=== PATIENT | female | born 1940 | race Hispanic/Latino ===

== ENCOUNTER 2018-01-06 08:39 | Day surgery (SDC) | payer OTHER ==
[2017-12-25 16:04] VITALS: BMI 27.4
[2018-01-06] MEDS ORDERED: Iodixanol 320 MG/ML 200 ML BOTTLE IV ONE ×2 (10:08→11:11)
[2018-01-06] MEDS ORDERED: Lidocaine Hydrochloride 5 ML INJ ONE ×2 (10:17→10:18)
[2018-01-06] MEDS ORDERED: Midazolam 2 MG/2 ML VIAL ONE (10:24)
[2018-01-06] MEDS ORDERED: HYDROmorphone 0.5 mg/0.5 ml ISec IVP PRN (11:55)
[2018-01-06] MEDS ORDERED: Sodium Chloride 0.9% 1,000 ML IV SCH (12:00)
[2018-01-06] MEDS ORDERED: Dextrose 5%/0.45% NS 1,000 ML IV SCH (15:00)
--- NOTE | 2018-01-08 07:05 | VAS ---
DATE: 01/06/2018 INDICATIONS: The patient is a 77-year-old female, admitted to [facility] with bilateral lower extremity pain and gangrenous changes to the toes, underwent a CTA showing distal aortic bilateral common iliac occlusion. Therefore, she was brought for intervention of bilateral inflow disease. PROCEDURE PERFORMED: Distal abdominal aortogram with bilateral iliac runoff, selective iliofemoral angiogram with runoff, CHAMBER WORKER stenting of right common iliac artery with use of 7 x 57 mm Visi-Pro in the right common iliac artery, and subsequently PTCA stenting of right external iliac artery with a 6 x 17 mm Visi-Pro. PTCA stenting of the left common iliac artery with a 9 x 27 mm Visi-Pro. Final kissing balloon angioplasty with bilateral common iliac arteries, 8-Dutch left femoral arterial access, 7-Dutch right femoral venous access. Manual pressure for hemostasis. Angiographic findings: Right common iliac 100% occluded, left common iliac ostial 80% calcified lesion. Right external iliac 70% to 80% stenosis. Right lower extremity findings, profunda femoris patent. SFA 100% occluded reconstitution of flow, overflow noted below the knee. Left profunda femoris patent. SFA 100% occluded with collateral flow noted below the knee. Hemodynamics: Right common femoral on initial access had a 70 mm pressure. There was an 80 mm gradient from the aorta to the right common femoral artery which resolved after the trending of the right common iliac and external iliac. Left common femoral, it was a 40 mm pressure gradient, which is all after deployment of the stent in the common iliac artery. IMPRESSION: Successful angioplasty of bilateral common iliac and right external iliac with use of balloon glassware maker demonstrator with bare-metal stents. RECOMMENDATIONS: The patient is to undergo removal of the sheath. Be observed in [facility] for six hours and be transferred back to [place] around 6 p.m. If the patient needs to be considered for staged intervention of the SFAs, if her symptoms of pain does not resolve, continue the patient to do antibiotic therapy, aspirin, statin, beta-blockers, Plavix, DANK inhibitors. Thank you Dr. Lind, Dr. Bell and Dr. Brenner for letting me participate in the care of this patient. Zbigniew Puente MD cc: Dr. Valdovinos. Dr. Bell. Dr. Brenner
== END 2018-01-06 17:40 | disposition short-term general hospital (02) ==
LOC: C.CATHLAB 08:39
PROVIDERS: ATTEND Internal Medicine Interventional Cardiology
DX: M79.606 Pain in leg, unspecified (principal); I96 Gangrene, not elsewhere classified
CPT/HCPCS: 36200; 37221; 75625; 75716; 76937; 82948; C1725; C1766; C1769; C1876; C1887; C1894; J1644; J1885; J2250; J3010; J7030; J7042; Q9966

== ENCOUNTER 2018-02-24 07:22 | Inpatient (IN) | payer MEDICARE, OTHER ==
[2018-02-13 18:27] VITALS: BMI 25.0
[2018-02-24] MEDS ORDERED: Midazolam 2 MG/2 ML VIAL ONE (10:07)
[2018-02-24] MEDS ORDERED: Lidocaine 2% MPF (5 ml) Inj ONE (10:07)
[2018-02-24] MEDS ORDERED: Iodixanol 320 MG/ML 200 ML BOTTLE IV ONE (10:08)
[2018-02-24] MEDS ORDERED: Iodixanol 320 MG/ML 100 ML BOTTLE IV ONE (10:08)
[2018-02-24] MEDS ORDERED: Heparin25000 units/250ml 1/2NS 25,000 UNITS/250 ML BAG IV PRN ×2 (16:23→18:05)
[2018-02-24] MEDS ORDERED: Heparin25000 units/250ml 1/2NS 25,000 UNITS/250 ML BAG IV ONE (18:12)
[2018-02-24 18:13] LABS: INR 1.2; PROTHROMBIN TIME 13.6 SECONDS (9.7-12.2)
--- NOTE | 2018-02-24 21:32 | CP.PCM.CON ---
History of Present Illness - History of Present Illness History of Present Illness: Surgery: Dr. Trent CC: B/L LE gangrene/necrosis HPI: 77F w. pmh significant for COPD, DM, CAD, CHF, chronic anemia, and non- healing bilateral lower extremity wounds was transferred from [facility] for LE angio and cardiac cath. Pt is unreliable historian at time of exam and hx was gathered from review of medical records. Pt has extensive PAD and chronic wounds on her B/L LE. Per review of records, wounds have been worsening despite endovascular interventions and local wound care. ROS: unattainable 2/2 AMS PMH: see above PSH:appendectomy, Angioplasty w b/l illiac stents (01/07/18) Meds: MAR reviewed NKDA SocialHx: former tobacco use, no ETOH/drugs FH: non-contributory Review of Systems - Review of Systems Systems not reviewed;Unavailable: Altered Mental Status Past Patient History - Infectious Disease Hx of Infectious Diseases: None - Past Medical History & Family History Past Medical History?: Yes - Past Social History Smoking Status: Former Smoker - CARDIAC Hx Cardiac Disorders: Yes Hx Congestive Heart Failure: Yes Hx Hypercholesterolemia: Yes Hx Hypertension: Yes Hx Peripheral Edema: Yes - PULMONARY Hx Respiratory Disorders: Yes Hx Bronchitis: Yes Hx Chronic Obstructive Pulmonary Disease (COPD): Yes Hx Pneumonia: Yes - NEUROLOGICAL Hx Neurological Disorder: Yes Other/Comment: Paresthesias of both feet - HEENT Hx HEENT Problems: No - RENAL Hx Chronic Kidney Disease: No - ENDOCRINE/METABOLIC Hx Endocrine Disorders: Yes Hx Hyperthyroidism: Yes - HEMATOLOGICAL/ONCOLOGICAL Hx Blood Disorders: Yes Hx Anemia: Yes - INTEGUMENTARY Hx Dermatological Problems: Yes Hx Cellulitis: Yes - MUSCULOSKELETAL/RHEUMATOLOGICAL Hx Musculoskeletal Disorders: Yes Hx Falls: Yes - GASTROINTESTINAL Hx Gastrointestinal Disorders: No - GENITOURINARY/GYNECOLOGICAL Hx Genitourinary Disorders: No - PSYCHIATRIC Hx Psychophysiologic Disorder: Yes Hx Anxiety: Yes Hx Substance Use: No - SURGICAL HISTORY Hx Surgeries: Yes Hx Appendectomy: Yes Other/Comment: kidney stone removal - ANESTHESIA Hx Anesthesia: Yes Hx Anesthesia Reactions: No Hx Malignant Hyperthermia: No Has any member of the family had a problem w/ anesthesia?: No Meds Allergies/Adverse Reactions: Allergies Allergy/AdvReac Type Severity Reaction Status Date / Time No Known Allergies Allergy Verified 02/12/18 12:54 - Medications Medications: Current Medications Sodium Chloride (Sodium Chloride 0.9%) 1,000 mls @ 50 mls/hr IV .Q20H CELESTE Heparin Sodium/Sodium Chloride (Heparin 32631 Units/250ml 1/2 Normal Saline) 25 ,000 units in 250 mls @ 11.92 mls/hr IV .[id number] PRN; Protocol; 18 UNITS/KG/HR PRN Reason: ADJUST RATE PER PROTOCOL Pneumococcal Polyvalent Vaccine (Pneumovax 23 Vaccine) 0.5 ml IM .ONCE ONE Stop: 02/27/18 10:01 Physical Exam - Constitutional Appears: Non-toxic, No Acute Distress - Head Exam Head Exam: ATRAUMATIC, NORMOCEPHALIC - Eye Exam Eye Exam: EOMI - ENT Exam ENT Exam: Mucous Membranes Moist - Neck Exam Neck exam: Positive for: Full Rom - Respiratory Exam Respiratory Exam: NORMAL BREATHING PATTERN. absent: Accessory Muscle Use, Respiratory Distress - Cardiovascular Exam Cardiovascular Exam: Tachycardia - GI/Abdominal Exam GI & Abdominal Exam: Soft. absent: Tenderness - Extremities Exam Additional comments: RLE necrotic toes and extensive necrosis of posterior/medial calf with muscle involvement, foul smelling LLE necrosis of toes and dorsum of foot, small area of breakdown over medial calf ~2x2cm - Neurological Exam Neurological exam: Altered Results - Vital Signs Recent Vital Signs: Last Vital Signs Temp 97.2 F L 02/24/18 19:48 Pulse 90 02/24/18 19:48 Resp 20 02/24/18 19:48 BP 124/79 02/24/18 19:48 Pulse Ox 99 02/24/18 19:48 - Labs Labs: Laboratory Results - last 24 hr 02/24/18 17:48 PT 13.6 H INR 1.2 APTT 66 H Assessment & Plan - Assessment and Plan (Free Text) Assessment: 77F w. b/l LE gangrene 2/2 PVD -RLE will likely require amputation -LLE may benefit from bypass -U/S ordered to asses GSV -Type and screen ordered for possible cryoperserved vein -will need to discuss with family goals of care and expectations prior to surgical intervention -d/w attending Sheri PGY4
--- NOTE | 2018-02-25 00:58 | CP.PCM.PN ---
Subjective - Date & Time of Evaluation Date of Evaluation: 02/24/18 Time of Evaluation: 16:55 - Subjective Subjective: s/p angiogram showing completely occluded left SNUFF CONTAINER INSPECTOR Objective - Vital Signs/Intake and Output Vital Signs (last 24 hours): Temp Pulse Resp BP Pulse Ox 98.1 F 91 H 20 124/79 97 02/24/18 23:54 02/24/18 23:54 02/24/18 23:54 02/24/18 23:54 02/24/18 23:54 Intake and Output: 02/24/18 02/25/18 18:59 06:59 Intake Total 194 Balance 194 - Medications Medications: Current Medications Sodium Chloride (Sodium Chloride 0.9%) 1,000 mls @ 50 mls/hr IV .Q20H CELESTE Heparin Sodium/Sodium Chloride (Heparin 20879 Units/250ml 1/2 Normal Saline) 25 ,000 units in 250 mls @ 11.92 mls/hr IV .[id number] PRN; Protocol; 18 UNITS/KG/HR PRN Reason: ADJUST RATE PER PROTOCOL Pneumococcal Polyvalent Vaccine (Pneumovax 23 Vaccine) 0.5 ml IM .ONCE ONE Stop: 02/27/18 10:01 - Labs Labs: PT 13.6 SECONDS (9.7-12.2) H 02/24/18 17:48 INR 1.2 02/24/18 17:48 APTT 66 SECONDS (21-34) H 02/24/18 17:48 - Constitutional Appears: Well, In Acute Distress - Head Exam Head Exam: ATRAUMATIC, NORMAL INSPECTION, NORMOCEPHALIC - Eye Exam Eye Exam: EOMI, Normal appearance, PERRL Pupil Exam: NORMAL ACCOMODATION, PERRL - ENT Exam ENT Exam: Mucous Membranes Moist, Normal Exam - Neck Exam Neck Exam: Full ROM, Normal Inspection. absent: Lymphadenopathy - Respiratory Exam Respiratory Exam: Clear to Ausculation Bilateral, NORMAL BREATHING PATTERN - Cardiovascular Exam Cardiovascular Exam: REGULAR RHYTHM, RRR, +S1, +S2, Murmur - GI/Abdominal Exam GI & Abdominal Exam: Soft, Normal Bowel Sounds. absent: Tenderness - Extremities Exam Extremities Exam: Full ROM, Normal Capillary Refill, Normal Inspection. absent : Joint Swelling, Pedal Edema Additional comments: gangrenous toes - Back Exam Back Exam: NORMAL INSPECTION - Neurological Exam Neurological Exam: Alert, Awake, CN II-XII Intact, Normal Gait, Oriented x3 - Psychiatric Exam Psychiatric exam: Normal Affect, Normal Mood - Skin Skin Exam: Dry, Intact, Normal Color, Warm Assessment and Plan (1) PVD (peripheral vascular disease) Assessment & Plan: completely occluded left SNUFF CONTAINER INSPECTOR with collateral flow to left PFA plan for SNUFF CONTAINER INSPECTOR endarterectomy keep pt on DAPT statins BB acei Status: Acute (2) Abnormal nuclear stress test Assessment & Plan: pt had refused cardiac cath in the past will be high risk for prolonged vascular surgery would recommed to just have endarterectomy of SNUFF CONTAINER INSPECTOR Status: Acute (3) CHF exacerbation Status: Acute (4) Gangrenous toe Assessment & Plan: podiatry following pt in [place] vascular sx on board Status: Acute (5) 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
--- NOTE | 2018-02-25 02:04 | CP.PCM.PN ---
Subjective - Date & Time of Evaluation Date of Evaluation: 02/25/18 Time of Evaluation: 01:53 - Subjective Subjective: 77 f transferred form [facility] was there for last 2 months a/w gangrenous lower ext , s/p b/l iliac stents in December 2017, also has h/o + stress test, dm on OHA, dementia, hyperthyroid, renal insufficiency, anasarca, bed ridden with recent worsening of right lower ext, rest pain. Angiography done in hospital on 02/24 showed acute complete occlusion of superficial femoral artery, and vascular surg consulted for probable endarterctomy to for symptom relieve. Last day notes of different subspecialities, prior consults, investigations reviewed also information obtained from Dr. Puente. DM meds, and tapazole being held, along with tramadol. Heparin drip has been ordered by cardiology for PVD. Patient being evaluated by vascular surg. Plan Patient will need to be diuresed, currently being hydrated due recent iodinated contrast exposure Vascular surg eval, amputation may be needed any was due to gangernous le, but endarterctomy may help symptomatically, risk of wound non healing due to anasarca Hold OHA, tramadol, tapazole, plavix, Continue ASA, heparin Accucheck achs goals of care to be discussed with family Palliative care may be needed. Objective - Vital Signs/Intake and Output Vital Signs (last 24 hours): Temp Pulse Resp BP Pulse Ox 98.1 F 91 H 20 124/79 97 02/24/18 23:54 02/24/18 23:54 02/24/18 23:54 02/24/18 23:54 02/24/18 23:54 Intake and Output: 02/24/18 02/25/18 18:59 06:59 Intake Total 194 Balance 194 - Medications Medications: Current Medications Bisacodyl (Dulcolax) 10 mg OH DAILY PRN PRN Reason: Constipation Docusate Sodium (Colace) 100 mg PO DAILY CELESTE Famotidine (Pepcid) 20 mg PO DAILY CELESTE Sodium Chloride (Sodium Chloride 0.9%) 1,000 mls @ 50 mls/hr IV .Q20H CELESTE Heparin Sodium/Sodium Chloride (Heparin 41412 Units/250ml 1/2 Normal Saline) 25 ,000 units in 250 mls @ 11.92 mls/hr IV .[id number] PRN; Protocol; 18 UNITS/KG/HR PRN Reason: ADJUST RATE PER PROTOCOL Isosorbide Mononitrate (Imdur Er) 30 mg PO DAILY CELESTE Memantine (Namenda) 5 mg PO BID CELESTE Metoprolol Tartrate (Lopressor) 25 mg PO Q12 CELESTE Multivitamins (Hexavitamin) 1 tab PO DAILY CELESTE Oxycodone/Acetaminophen (Percocet 5/325 Mg Tab) 1 tab PO Q4 PRN PRN Reason: Pain, moderate (4-7) Stop: 02/28/18 01:48 Pneumococcal Polyvalent Vaccine (Pneumovax 23 Vaccine) 0.5 ml IM .ONCE ONE Stop: 02/27/18 10:01 - Labs Labs: PT 13.6 SECONDS (9.7-12.2) H 02/24/18 17:48 INR 1.2 02/24/18 17:48 APTT 66 SECONDS (21-34) H 02/24/18 17:48
[2018-02-25 02:05] LABS: BASO % 0.1 % (0.0-2.0); HEMOGLOBIN 8.3 g/dL (11.0-16.0); LYMPH # 0.5 K/uL (1.0-4.3); LYMPH % 4.2 % (20.0-40.0); MEAN CELL VOLUME 75.6 fL (81.0-99.0); MEAN CORPUSCULAR HEMOGLOBIN 23.4 pg (27.0-31.0); MEAN CORPUSCULAR HGB CONC 30.9 g/dL (33.0-37.0); MEAN PLATELET VOLUME 8.2 fL (7.2-11.7); MONO # 0.7 K/uL (0.0-0.8); MONO % 5.9 % (0.0-10.0); NEUT # 10.2 K/uL (1.8-7.0); NEUT % 89.8 % (50.0-75.0); NRBC % 0.3 % (0.0-2.0); PLATELET COUNT 251 K/uL (130-400); RBC 3.53 Mil/uL (3.80-5.20); RED CELL DISTRIBUTION WIDTH 22.6 % (11.5-14.5); WHITE BLOOD COUNT 11.3 K/uL (4.8-10.8)
[2018-02-25 02:33] LABS: ALB/GLOB RATIO 0.8 (1.0-2.1); ALBUMIN 2.3 g/dL (3.5-5.0); ALT/SGPT 30 U/L (9-52); AST/SGOT 15 U/L (14-36); BLOOD UREA NITROGEN 32 mg/dL (7-17); CALCIUM 8.6 mg/dl (8.6-10.4); GFR AFRICAN-AMERICAN > 60; GFR NON-AFRICAN AMERICAN > 60
[2018-02-25 03:12] LABS: ANISOCYTOSIS MODERATE; LYMPHOCYTE 4 % (20-40); MONOCYTE 6 % (0-10); NEUTROPHIL 90 % (50-75); OVALOCYTES SLIGHT; PLATELET ESTIMATE NORMAL (NORMAL); TOTAL CELLS COUNTED 100
[2018-02-25 03:13] LABS: HYPOCHROMIC SLIGHT; MICROCYTOSIS SLIGHT; POLYCHROMIC SLIGHT
--- NOTE | 2018-02-25 03:13 | CP.PCM.HP ---
<Pati Rouse - Last Filed: 02/25/18 03:43> History of Present Illness - History of Present Illness History of Present Illness: CC: Bilateral lower extremities wounds and pain HPI ( As per nursing and EMR) Patient is a 77 year old female with past medical history of COPD, DM, CAD, CHF , Chronic anemia and PVD with non-healing bilateral lower extremity wounds and noted for malodorous smell and increased pain by nursing room staff. Patient has been admitted for similar complain in the past and noted for PVD. Patient had an angioplasty with bilateral iliac stent placement on 01/07 by crimper assembler, Dr. Puente. Patient was brought back to the hospital ([facility]) for worsening bilateral LE gangrene. As per EMR documentation, patient did well after intervention in December and noted worsening of symptoms, which has made her bedbound for approximately a week. During the encounter, patient was very sleepy but did deny any discomfort at the moment. Patient was transferred from [facility] to [facility] for angiogram. PMH: COPD, DM, CAD, CHF, Chronic anemia and PVD PSH:appendectomy, Angioplasty w b/l illiac stents (01/07/18) FHx: Unknown Medications: As per EMR, Unable to obtain information from patient All: NKDA Socia lHx: Lives at a long term. Former tobacco use Present on Admission - Present on Admission Any Indicators Present on Admission: No Review of Systems - Review of Systems Review of Systems: Unable to obtain as patient was very sleepy Past Patient History - Infectious Disease Hx of Infectious Diseases: None - Past Medical History & Family History Past Medical History?: Yes - Past Social History Smoking Status: Former Smoker - CARDIAC Hx Cardiac Disorders: Yes Hx Congestive Heart Failure: Yes Hx Hypercholesterolemia: Yes Hx Hypertension: Yes Hx Peripheral Edema: Yes - PULMONARY Hx Respiratory Disorders: Yes Hx Bronchitis: Yes Hx Chronic Obstructive Pulmonary Disease (COPD): Yes Hx Pneumonia: Yes - NEUROLOGICAL Hx Neurological Disorder: Yes Other/Comment: Paresthesias of both feet - HEENT Hx HEENT Problems: No - RENAL Hx Chronic Kidney Disease: No - ENDOCRINE/METABOLIC Hx Endocrine Disorders: Yes Hx Hyperthyroidism: Yes - HEMATOLOGICAL/ONCOLOGICAL Hx Blood Disorders: Yes Hx Anemia: Yes - INTEGUMENTARY Hx Dermatological Problems: Yes Hx Cellulitis: Yes - MUSCULOSKELETAL/RHEUMATOLOGICAL Hx Musculoskeletal Disorders: Yes Hx Falls: Yes - GASTROINTESTINAL Hx Gastrointestinal Disorders: No - GENITOURINARY/GYNECOLOGICAL Hx Genitourinary Disorders: No - PSYCHIATRIC Hx Psychophysiologic Disorder: Yes Hx Anxiety: Yes Hx Substance Use: No - SURGICAL HISTORY Hx Surgeries: Yes Hx Appendectomy: Yes Other/Comment: kidney stone removal - ANESTHESIA Hx Anesthesia: Yes Hx Anesthesia Reactions: No Hx Malignant Hyperthermia: No Has any member of the family had a problem w/ anesthesia?: No Meds Allergies/Adverse Reactions: Allergies Allergy/AdvReac Type Severity Reaction Status Date / Time No Known Allergies Allergy Verified 02/12/18 12:54 Physical Exam - Constitutional Appears: No Acute Distress - Head Exam Head Exam: ATRAUMATIC - Eye Exam Eye Exam: EOMI - ENT Exam ENT Exam: Mucous Membranes Dry - Respiratory Exam Respiratory Exam: NORMAL BREATHING PATTERN. absent: Decreased Breath Sounds, Prolonged Expiratory Phase, Rales, Rhonchi, Wheezes, Respiratory Distress Additional comments: CTA anteriorly B/L - Cardiovascular Exam Cardiovascular Exam: REGULAR RHYTHM, +S1, +S2 - GI/Abdominal Exam GI & Abdominal Exam: Normal Bowel Sounds, Soft. absent: Distended, Firm, Guarding, Tenderness - Extremities Exam Extremities exam: Negative for: normal inspection Additional comments: Bilateral foot gangrene Unable to examine, as it was just dressed by surgical nurse practitioner prior to the encounter - Neurological Exam Neurological exam: Alert - Psychiatric Exam Psychiatric exam: Normal Affect - Skin Skin Exam: Pallor Results - Vital Signs Recent Vital Signs: Last Vital Signs Temp 98.1 F 02/24/18 23:54 Pulse 91 H 02/24/18 23:54 Resp 20 02/24/18 23:54 BP 124/79 02/24/18 23:54 Pulse Ox 97 02/24/18 23:54 - Labs Result Diagrams: 02/25/18 02:01 02/25/18 02:01 Labs: Laboratory Results - last 24 hr 02/24/18 02/24/18 02/24/18 17:48 21:40 23:00 WBC RBC Hgb Hct MCV MCH MCHC RDW Plt Count MPV Neut % (Auto) Lymph % (Auto) [place] % (Auto) Eos % (Auto) Baso % (Auto) Neut # (Auto) Lymph # (Auto) [place] # (Auto) Eos # (Auto) Baso # (Auto) PT 13.6 H INR 1.2 APTT 66 H Sodium Potassium Chloride Carbon Dioxide Anion Gap BUN Creatinine Est GFR ( Amer) Est GFR (Non-Af Amer) POC Glucose (mg/dL) 104 Random Glucose Calcium Phosphorus Magnesium Total Bilirubin AST ALT Alkaline Phosphatase Total Protein Albumin Globulin Albumin/Globulin Ratio Blood Type Cancelled Antibody Screen Cancelled 02/25/18 02/25/18 02/25/18 02:01 02:01 02:01 WBC 11.3 H RBC 3.53 L Hgb 8.3 L Hct 26.7 L MCV 75.6 L MCH 23.4 L MCHC 30.9 L RDW 22.6 H Plt Count 251 MPV 8.2 Neut % (Auto) 89.8 H Lymph % (Auto) 4.2 L [place] % (Auto) 5.9 Eos % (Auto) 0.0 Baso % (Auto) 0.1 Neut # (Auto) 10.2 H Lymph # (Auto) 0.5 L [place] # (Auto) 0.7 Eos # (Auto) 0.0 Baso # (Auto) 0.0 PT INR APTT 90 H D Sodium 139 Potassium 4.2 Chloride 111 H Carbon Dioxide 20 L Anion Gap 13 BUN 32 H Creatinine 0.9 Est GFR ( Amer) > 60 Est GFR (Non-Af Amer) > 60 POC Glucose (mg/dL) Random Glucose 92 Calcium 8.6 Phosphorus 2.9 Magnesium 1.8 Total Bilirubin 0.9 AST 15 ALT 30 Alkaline Phosphatase 118 Total Protein 5.3 L Albumin 2.3 L Globulin 3.0 Albumin/Globulin Ratio 0.8 L Blood Type Antibody Screen Assessment & Plan (1) Gangrene due to arterial insufficiency Assessment and Plan: Consultations: - Maitre D, Dr. Puente * s/p angiogram showing completely occluded left TEMPLER HEAD * Management as per recommendation - Vascular surgery on board * Management as per recommendation * Possible need for RLE amputation, possible LLE bypass and possible cryoperserved vein * Need for assessment for greater saphenous vein - Infectious disease, Dr. Powers Leg wound Culture (02/12/18): * Providencia Rettgeri and E.coli Medications: Heparin drip Percocet 1 tab PO Q4H PRN Imdur ER 30mg PO daily Cefepime 1gm IV daily Florastor 250mg PO BID Status: Chronic Priority: High (2) Dementia Assessment and Plan: Memantine 5mg PO BID Status: Acute (3) Constipation Assessment and Plan: Duclolax 10mg ND PRN Colace 100mg PO daily Status: Acute (4) Hypertension Assessment and Plan: Lopressor 25mg PO Q12 Status: Acute (5) History of diabetes mellitus Assessment and Plan: HgbA1C (02/14/18): 5.9 Accuchecks Status: Acute (6) History of anemia Assessment and Plan: H/H stable 8.8/26.7 Will continue to monitor with labs and reassess the need for transfusion Status: Acute (7) ARNIE (acute kidney injury) Assessment and Plan: Resolving NS @ 100mls/cc Status: Acute (8) Prophylactic measure Assessment and Plan: GI: Pepcid 20mg PO daily DVT: Heparin Drip Status: Acute <Jaquan Mcelroy P - Last Filed: 02/27/18 07:58> Results - Vital Signs Recent Vital Signs: Last Vital Signs Temp 97.4 F L 02/26/18 23:35 Pulse 75 02/27/18 01:00 Resp 20 02/26/18 23:35 BP 130/69 02/26/18 23:35 Pulse Ox 95 02/26/18 23:35 - Labs Result Diagrams: 02/26/18 07:48 02/26/18 07:48 Labs: Laboratory Results - last 24 hr 02/26/18 02/26/18 02/26/18 07:48 07:48 11:42 WBC 11.7 H RBC 3.46 L Hgb 8.1 L Hct 27.0 L MCV 78.1 L D MCH 23.5 L MCHC 30.1 L RDW 22.7 H Plt Count 214 MPV 8.3 Neut % (Auto) 89.2 H Lymph % (Auto) 4.2 L [place] % (Auto) 6.5 Eos % (Auto) 0.0 Baso % (Auto) 0.1 Neut # (Auto) 10.5 H Lymph # (Auto) 0.5 L [place] # (Auto) 0.8 Eos # (Auto) 0.0 Baso # (Auto) 0.0 Neutrophils % (Manual) 91 H Lymphocytes % (Manual) 3 L Monocytes % (Manual) 5 Myelocytes % 1 H Platelet Estimate Normal Polychromasia Slight Hypochromasia (manual) Moderate Anisocytosis (manual) Moderate Microcytosis (manual) Slight Ovalocytes Slight Sodium 140 Potassium 4.3 Chloride 111 H Carbon Dioxide 14 L Anion Gap 19 BUN 33 H Creatinine 0.8 Est GFR ( Amer) > 60 Est GFR (Non-Af Amer) > 60 POC Glucose (mg/dL) 89 Random Glucose 96 Calcium 8.2 L Phosphorus 3.2 Magnesium 1.7 Total Bilirubin 1.0 AST 18 ALT 27 Alkaline Phosphatase 101 Total Protein 5.4 L Albumin 2.5 L Globulin 2.9 Albumin/Globulin Ratio 0.9 L 02/26/18 02/26/18 16:19 21:28 WBC RBC Hgb Hct MCV MCH MCHC RDW Plt Count MPV Neut % (Auto) Lymph % (Auto) [place] % (Auto) Eos % (Auto) Baso % (Auto) Neut # (Auto) Lymph # (Auto) [place] # (Auto) Eos # (Auto) Baso # (Auto) Neutrophils % (Manual) Lymphocytes % (Manual) Monocytes % (Manual) Myelocytes % Platelet Estimate Polychromasia Hypochromasia (manual) Anisocytosis (manual) Microcytosis (manual) Ovalocytes Sodium Potassium Chloride Carbon Dioxide Anion Gap BUN Creatinine Est GFR ( Amer) Est GFR (Non-Af Amer) POC Glucose (mg/dL) 115 H 114 H Random Glucose Calcium Phosphorus Magnesium Total Bilirubin AST ALT Alkaline Phosphatase Total Protein Albumin Globulin Albumin/Globulin Ratio Attending/Attestation - Attestation I have personally seen and examined this patient.: Yes I have fully participated in the care of the patient.: Yes I have reviewed all pertinent clinical information: Yes Notes (Text): See note on the same day
[2018-02-25] MEDS: Cefepime IV 1 gm in Dextrose 1 GM/50 ML BAG IVPB SCH (04:53)
--- NOTE | 2018-02-25 06:55 | VAS ---
Copied To: Zbigniew Puente MD Attending MD: Zbigniew Puente MD DATE: 02/24/2018 INDICATIONS: Critical limb ischemia, gangrenous toes. PROCEDURE PERFORMED: Distal abdominal aortogram with bilateral iliac runoff, selective bilateral iliofemoral angiogram with runoff, a 6-Zimbabwean right femoral arterial access. TECHNIQUES OF PROCEDURE: After obtaining informed consent, the patient was brought to the cardiac cath suite in post-absorptive and non-sedated state. The patient was prepped and draped in the usual sterile fashion, 2% lidocaine was used for infiltration of anesthesia. Using modified Seldinger technique, a 6-Zimbabwean sheath was introduced into the right femoral artery. A right iliofemoral angiogram with runoff was performed. Digital subtraction angiographic views of [id number] and right foot profile was obtained. Angiographic findings of the right lower extremity, right common iliac, external iliac patent, common iliac artery stent is widely patent. Profunda has a high-grade stenosis. SFA 100% occluded. Collateral flow, distal reconstitution with three-vessel runoff below the knee. Abdominal aorta, bilateral common iliac artery stents widely patent, left common iliac patent, external iliac patent, left profunda femoris is 100% occluded with collateral flow, SFA 100% occluded, profunda feeds the distal SFA outside the Manan's canal, reconstitution of flow with two-vessel runoff below the knee. IMPRESSION: Severe calcified profunda disease. RECOMMENDATIONS: The patient is to undergo vascular surgery evaluation for possible endarterectomy and patch repair. The patient at moderate risk and can proceed with the planned surgery. We will consult Dr. Trent. The patient is to be admitted to ICU and plan for revascularization. Zbigniew Puente MD
[2018-02-25] MEDS: Multiple Vitamins Tab PO SCH (10:04)
[2018-02-25] MEDS: Saccharomyces Boulardi 250 mg Cap PO SCH ×2 (10:04→18:16)
[2018-02-25] MEDS ORDERED: Heparin25000 units/250ml 1/2NS 25,000 UNITS/250 ML BAG IV PRN (10:15)
--- NOTE | 2018-02-25 12:34 | CP.PCM.PN ---
Objective - Vital Signs/Intake and Output Vital Signs (last 24 hours): Temp Pulse Resp BP Pulse Ox 97.6 F 91 H 18 130/77 100 02/25/18 07:00 02/25/18 07:55 02/25/18 07:00 02/25/18 10:04 02/25/18 07:00 Intake and Output: 02/25/18 02/25/18 06:59 18:59 Intake Total 194 400 Balance 194 400 - Medications Medications: Current Medications Bisacodyl (Dulcolax) 10 mg [place] DAILY PRN PRN Reason: Constipation Docusate Sodium (Colace) 100 mg PO DAILY [facility] Last Admin: 02/25/18 10:04 Dose: 100 mg Famotidine (Pepcid) 20 mg PO DAILY [facility] Last Admin: 02/25/18 10:04 Dose: 20 mg Sodium Chloride (Sodium Chloride 0.9%) 1,000 mls @ 50 mls/hr IV .Q20H [facility] Cefepime HCl (Maxipime Iv 1 Gm Premix) 1 gm in 50 mls @ 100 mls/hr IVPB Q24H [facility] PRN Reason: Protocol Last Admin: 02/25/18 04:53 Dose: 100 mls/hr Heparin Sodium/Sodium Chloride (Heparin 77725 Units/250ml 1/2 Normal Saline) 25 ,000 units in 250 mls @ 9.934 mls/hr IV .Q24H PRN; Protocol; 15 UNITS/KG/HR PRN Reason: ADJUST RATE PER PROTOCOL Last Admin: 02/25/18 10:19 Dose: 15 units/kg/hr, 9.934 mls/hr Isosorbide Mononitrate (Imdur Er) 30 mg PO DAILY [facility] Last Admin: 02/25/18 10:06 Dose: 30 mg Memantine (Namenda) 5 mg PO BID [facility] Last Admin: 02/25/18 10:04 Dose: 5 mg Metoprolol Tartrate (Lopressor) 25 mg PO Q12 [facility] Last Admin: 02/25/18 10:04 Dose: 25 mg Multivitamins (Hexavitamin) 1 tab PO DAILY [facility] Last Admin: 02/25/18 10:04 Dose: 1 tab Oxycodone/Acetaminophen (Percocet 5/325 Mg Tab) 1 tab PO Q4 PRN PRN Reason: Pain, moderate (4-7) Stop: 02/28/18 01:48 Pneumococcal Polyvalent Vaccine (Pneumovax 23 Vaccine) 0.5 ml IM .ONCE ONE Stop: 02/27/18 10:01 Saccharomyces Boulardii (Florastor) 250 mg PO BID [facility] Last Admin: 02/25/18 10:04 Dose: 250 mg - Labs Labs: 02/25/18 02:01 02/25/18 02:01 PT 13.6 SECONDS (9.7-12.2) H 02/24/18 17:48 INR 1.2 02/24/18 17:48 APTT 229 SECONDS (21-34) H* D 02/25/18 08:36 Assessment and Plan (1) PVD (peripheral vascular disease) Status: Acute (2) Abnormal nuclear stress test Status: Acute (3) CHF exacerbation Status: Acute (4) Gangrenous toe Status: Acute (5) 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
--- NOTE | 2018-02-25 12:42 | CP.PCM.PN ---
Subjective - Date & Time of Evaluation Date of Evaluation: 02/25/18 Time of Evaluation: 10:00 - Subjective Subjective: Zach Rico, PGY1 Cardiology Progress Note for Dr. Puente Patient was examined at bedside this morning. Patient was alert and orieted x2 ( person and place). She is a poor historian. Mental status is also poor, patient was unable to give a reliable review of systems. During interview, patient could only say "I don't feel good." Yesterday, patient had gone for angiogram of the aort/B/L Lower Extremity; she was found to have completely occluded Left LAST SAWYER with collateral flow to Left PFA. Patient is at moderate risk for vascular surgery and may proceed with the procedure. Patient is poor historian and was unable to verbalize whether or not she wanted to undergo a procedure. Otherwise, no changes overnight. Objective - Vital Signs/Intake and Output Vital Signs (last 24 hours): Temp Pulse Resp BP Pulse Ox 97.6 F 91 H 18 130/77 100 02/25/18 07:00 02/25/18 07:55 02/25/18 07:00 02/25/18 10:04 02/25/18 07:00 Intake and Output: 02/25/18 02/25/18 06:59 18:59 Intake Total 194 400 Balance 194 400 - Medications Medications: Current Medications Bisacodyl (Dulcolax) 10 mg [place] DAILY PRN PRN Reason: Constipation Docusate Sodium (Colace) 100 mg PO DAILY [facility] Last Admin: 02/25/18 10:04 Dose: 100 mg Famotidine (Pepcid) 20 mg PO DAILY [facility] Last Admin: 02/25/18 10:04 Dose: 20 mg Sodium Chloride (Sodium Chloride 0.9%) 1,000 mls @ 50 mls/hr IV .Q20H [facility] Cefepime HCl (Maxipime Iv 1 Gm Premix) 1 gm in 50 mls @ 100 mls/hr IVPB Q24H [facility] PRN Reason: Protocol Last Admin: 02/25/18 04:53 Dose: 100 mls/hr Heparin Sodium/Sodium Chloride (Heparin 43349 Units/250ml 1/2 Normal Saline) 25 ,000 units in 250 mls @ 9.934 mls/hr IV .Q24H PRN; Protocol; 15 UNITS/KG/HR PRN Reason: ADJUST RATE PER PROTOCOL Last Admin: 02/25/18 10:19 Dose: 15 units/kg/hr, 9.934 mls/hr Isosorbide Mononitrate (Imdur Er) 30 mg PO DAILY [facility] Last Admin: 02/25/18 10:06 Dose: 30 mg Memantine (Namenda) 5 mg PO BID [facility] Last Admin: 02/25/18 10:04 Dose: 5 mg Metoprolol Tartrate (Lopressor) 25 mg PO Q12 [facility] Last Admin: 02/25/18 10:04 Dose: 25 mg Multivitamins (Hexavitamin) 1 tab PO DAILY [facility] Last Admin: 02/25/18 10:04 Dose: 1 tab Oxycodone/Acetaminophen (Percocet 5/325 Mg Tab) 1 tab PO Q4 PRN PRN Reason: Pain, moderate (4-7) Stop: 02/28/18 01:48 Pneumococcal Polyvalent Vaccine (Pneumovax 23 Vaccine) 0.5 ml IM .ONCE ONE Stop: 02/27/18 10:01 Saccharomyces Boulardii (Florastor) 250 mg PO BID [facility] Last Admin: 02/25/18 10:04 Dose: 250 mg - Labs Labs: 02/25/18 02:01 02/25/18 02:01 PT 13.6 SECONDS (9.7-12.2) H 02/24/18 17:48 INR 1.2 02/24/18 17:48 APTT 229 SECONDS (21-34) H* D 02/25/18 08:36 - Constitutional Appears: Confused - Head Exam Head Exam: ATRAUMATIC, NORMAL INSPECTION, NORMOCEPHALIC - Eye Exam Eye Exam: Normal appearance, PERRL. absent: Periorbital swelling - ENT Exam ENT Exam: Mucous Membranes Moist, Normal Exam - Neck Exam Neck Exam: Full ROM, Normal Inspection. absent: Tenderness - Respiratory Exam Respiratory Exam: Clear to Ausculation Bilateral. absent: Accessory Muscle Use , Chest Wall Tenderness, Decreased Breath Sounds, Rales, Rhonchi, Wheezes - Cardiovascular Exam Cardiovascular Exam: RRR, +S1, +S2 - GI/Abdominal Exam GI & Abdominal Exam: Soft, Normal Bowel Sounds. absent: Distended, Guarding, Tenderness, Rebound - Extremities Exam Extremities Exam: Tenderness. absent: Calf Tenderness, Full ROM Additional comments: Gangrenous distal lower extremity. Dressing applied to bilateral lower extremities. Foul odor. - Neurological Exam Neurological Exam: Alert (AAOx2. Mental Status poor. Dementia. ). absent: Oriented x3 - Skin Skin Exam: Abrasion, Warm Assessment and Plan - Assessment and Plan (Free Text) Assessment: Patient is a 77 y/o F with PMHx of PVD (b/l iliac stent 01/07, Dr. Puente), CAD, CHF, COPD, DM, who [place] [facility] [facility] [place] worsening bilateral ulcers with gangrenous toes. Patient has poor mental status and has appeared lethargic during hospital course. Tib/Fib Xray showed multiple ulcers of LE without osteo. Patient requires vascular surgery: LAST SAWYER endartarectomy. Patient transferred to [facility] and evaluated by cardiology via angiogram of the lower extremity. Patient is at moderate risk and may proceed with vascular surgery. Plan: Lower Extremity Arterial Insufficiency with gangrene - Vascular surgery: plan for LAST SAWYER endarterectomy. Possible need for RLE amputation, possible LLE bypass. - Angiogram (02/24): complete occlusion of left LAST SAWYER with collateral flow to left PFA. Patient is moderate risk for procedure but may undergo vascular surgery. - Hx of PVD (b/l iliac stents on 01/07) - f/u ID recs Dementia - AAOx2 - Poor historian and baseline mental status - Has not properly verbalized consent for further vascular surgery - c/w memantine DM - Last Hgb A1c was 5.9 - c/w Accuchecks - Maintain euglycemia GI ppx: Pepcid DVT ppx: Heparin gtt Dispo: Patient is s/p angio and moderate risk for vascular surgery; may undergo surgery. Case was discussed and reviewed with Textile Worker, Dr. Puente. Please see any further recommendations as per Dr. Puente.
--- NOTE | 2018-02-25 15:11 | CP.PCM.PN ---
Addendum entered and electronically signed by Brittany Beaulieu DO 02/25/18 16:00 : The plan did not save in original note Plan: Gangrene due to arterial insufficiency Consultations: Counseling Case Manager: Dr. Puente Vascular Surgeon: Dr. Trent Infectious Disease: Dr. Powers Vascular recommends: Possible need for RLE amputation, possible LLE bypass and possible cryoperserved vein Cardiology: took patient for cardiac cath; awaiting full read Infectious disease: recommendations appreciated (02/12/18) leg wound culture positive for: Providencia Rettgeri and E.coli Medications: Heparin drip Percocet 1 tab PO Q4H PRN Imdur ER 30mg PO daily Cefepime 1gm IV daily Florastor 250mg PO BID Dementia Memantine 5mg PO BID Constipation Duclolax 10mg VT PRN Colace 100mg PO daily Hypertension Lopressor 25mg PO Q12 History of diabetes mellitus HgbA1C (02/14/18): 5.9 Accuchecks History of anemia H/H stable 8.8/26.7 Will continue to monitor with labs and reassess the need for transfusion ARNIE (acute kidney injury) Resolving NS @ 100mls/cc Prophylactic measure GI: Pepcid 20mg PO daily DVT: Heparin Drip Overall plan is to the recommendations from sugery/cardio team for stenting vs amputation. Original Note: <Brittany Beaulieu - Last Filed: 02/25/18 15:40> Subjective - Date & Time of Evaluation Date of Evaluation: 02/25/18 Time of Evaluation: 15:05 - Subjective Subjective: PGY-1 Medicine Progress Note for Dr. Gaytan's service Patient seen and examined at bedside. Patient is a poor historian. Patient ROS limited as patient only repeated "I want to go home". When asked if she had pain , she said "I do not want anything". Patient seems to have AMS likely secondary to baseline dementia. Patient does not have capacity to consent for any procedures. Patient needs advocate (preferably family members) to make a decision as her proxy. Objective - Vital Signs/Intake and Output Vital Signs (last 24 hours): Temp Pulse Resp BP Pulse Ox 97.6 F 91 H 18 130/77 100 02/25/18 07:00 02/25/18 07:55 02/25/18 07:00 02/25/18 10:04 02/25/18 07:00 Intake and Output: 02/25/18 02/25/18 06:59 18:59 Intake Total 194 859 Balance 194 859 - Medications Medications: Current Medications Bisacodyl (Dulcolax) 10 mg [place] DAILY PRN PRN Reason: Constipation Docusate Sodium (Colace) 100 mg PO DAILY [facility] Last Admin: 02/25/18 10:04 Dose: 100 mg Famotidine (Pepcid) 20 mg PO DAILY [facility] Last Admin: 02/25/18 10:04 Dose: 20 mg Sodium Chloride (Sodium Chloride 0.9%) 1,000 mls @ 50 mls/hr IV .Q20H [facility] Cefepime HCl (Maxipime Iv 1 Gm Premix) 1 gm in 50 mls @ 100 mls/hr IVPB Q24H [facility] PRN Reason: Protocol Last Admin: 02/25/18 04:53 Dose: 100 mls/hr Heparin Sodium/Sodium Chloride (Heparin 49042 Units/250ml 1/2 Normal Saline) 25 ,000 units in 250 mls @ 9.934 mls/hr IV .Q24H PRN; Protocol; 15 UNITS/KG/HR PRN Reason: ADJUST RATE PER PROTOCOL Last Admin: 02/25/18 10:19 Dose: 15 units/kg/hr, 9.934 mls/hr Isosorbide Mononitrate (Imdur Er) 30 mg PO DAILY [facility] Last Admin: 02/25/18 10:06 Dose: 30 mg Memantine (Namenda) 5 mg PO BID [facility] Last Admin: 02/25/18 10:04 Dose: 5 mg Metoprolol Tartrate (Lopressor) 25 mg PO Q12 [facility] Last Admin: 02/25/18 10:04 Dose: 25 mg Multivitamins (Hexavitamin) 1 tab PO DAILY [facility] Last Admin: 02/25/18 10:04 Dose: 1 tab Oxycodone/Acetaminophen (Percocet 5/325 Mg Tab) 1 tab PO Q4 PRN PRN Reason: Pain, moderate (4-7) Stop: 02/28/18 01:48 Pneumococcal Polyvalent Vaccine (Pneumovax 23 Vaccine) 0.5 ml IM .ONCE ONE Stop: 02/27/18 10:01 Saccharomyces Boulardii (Florastor) 250 mg PO BID [facility] Last Admin: 02/25/18 10:04 Dose: 250 mg - Labs Labs: 02/25/18 02:01 02/25/18 02:01 PT 13.6 SECONDS (9.7-12.2) H 02/24/18 17:48 INR 1.2 02/24/18 17:48 APTT 229 SECONDS (21-34) H* D 02/25/18 08:36 - Constitutional Appears: Non-toxic, Confused - Head Exam Head Exam: NORMAL INSPECTION, NORMOCEPHALIC - Eye Exam Eye Exam: EOMI. absent: Scleral icterus - ENT Exam ENT Exam: Mucous Membranes Dry - Respiratory Exam Respiratory Exam: Clear to Ausculation Bilateral, NORMAL BREATHING PATTERN. absent: Decreased Breath Sounds, Rales, Rhonchi, Wheezes, Respiratory Distress - Cardiovascular Exam Cardiovascular Exam: REGULAR RHYTHM, +S1, +S2. absent: Tachycardia, JVD - GI/Abdominal Exam GI & Abdominal Exam: Soft, Normal Bowel Sounds. absent: Distended, Firm, Guarding, Tenderness - Extremities Exam Extremities Exam: Tenderness. absent: Normal Inspection Additional comments: bilateral lower extremities gangrene with dressings on; gangrene toes bilaterally - Neurological Exam Neurological Exam: Awake. absent: Alert, Oriented x3 - Skin Skin Exam: Intact, Normal Color Assessment and Plan - Assessment and Plan (Free Text) Assessment: Pt is a 77 yo female with PMH of COPD, DM, CAD, CHF, Chronic anemia and PVD with non-healing bilateral lower extremity wounds; angioplasty was done on 01/07 with bilateral iliac stent placement; however patient returned to the hospital for worsening bilateral LE gangrene; patient had angiogram done today pending results <Cesar Blake H - Last Filed: 02/25/18 16:39> Objective - Vital Signs/Intake and Output Vital Signs (last 24 hours): Temp Pulse Resp BP Pulse Ox 98.1 F 74 20 114/68 99 02/25/18 15:00 02/25/18 15:00 02/25/18 15:00 02/25/18 15:00 02/25/18 15:00 Intake and Output: 02/25/18 02/25/18 06:59 18:59 Intake Total 194 859 Balance 194 859 - Medications Medications: Current Medications Bisacodyl (Dulcolax) 10 mg [place] DAILY PRN PRN Reason: Constipation Docusate Sodium (Colace) 100 mg PO DAILY [facility] Last Admin: 02/25/18 10:04 Dose: 100 mg Famotidine (Pepcid) 20 mg PO DAILY [facility] Last Admin: 02/25/18 10:04 Dose: 20 mg Sodium Chloride (Sodium Chloride 0.9%) 1,000 mls @ 50 mls/hr IV .Q20H [facility] Cefepime HCl (Maxipime Iv 1 Gm Premix) 1 gm in 50 mls @ 100 mls/hr IVPB Q24H [facility] PRN Reason: Protocol Last Admin: 02/25/18 04:53 Dose: 100 mls/hr Heparin Sodium/Sodium Chloride (Heparin 86892 Units/250ml 1/2 Normal Saline) 25 ,000 units in 250 mls @ 9.934 mls/hr IV .Q24H PRN; Protocol; 15 UNITS/KG/HR PRN Reason: ADJUST RATE PER PROTOCOL Last Admin: 02/25/18 10:19 Dose: 15 units/kg/hr, 9.934 mls/hr Isosorbide Mononitrate (Imdur Er) 30 mg PO DAILY [facility] Last Admin: 02/25/18 10:06 Dose: 30 mg Memantine (Namenda) 5 mg PO BID [facility] Last Admin: 02/25/18 10:04 Dose: 5 mg Metoprolol Tartrate (Lopressor) 25 mg PO Q12 [facility] Last Admin: 02/25/18 10:04 Dose: 25 mg Multivitamins (Hexavitamin) 1 tab PO DAILY [facility] Last Admin: 02/25/18 10:04 Dose: 1 tab Oxycodone/Acetaminophen (Percocet 5/325 Mg Tab) 1 tab PO Q4 PRN PRN Reason: Pain, moderate (4-7) Stop: 02/28/18 01:48 Pneumococcal Polyvalent Vaccine (Pneumovax 23 Vaccine) 0.5 ml IM .ONCE ONE Stop: 02/27/18 10:01 Saccharomyces Boulardii (Florastor) 250 mg PO BID [facility] Last Admin: 02/25/18 10:04 Dose: 250 mg - Labs Labs: 02/25/18 02:01 02/25/18 02:01 PT 13.6 SECONDS (9.7-12.2) H 02/24/18 17:48 INR 1.2 02/24/18 17:48 APTT 229 SECONDS (21-34) H* D 02/25/18 08:36 Attending/Attestation - Attestation I have personally seen and examined this patient.: Yes I have fully participated in the care of the patient.: Yes I have reviewed all pertinent clinical information, including history, physical exam and plan: Yes Notes (Text): 02/25/18 16:34 Medical attending: Patient was seen and examined by me. Agree with the above note by the resident The patient is from [facility] and was moved to [facility] overnight in hopes that further interventions could be done as she has severe PVD and there is noted gangrene on the lower extremities. Considering the extent of the gangrene concern she may require amputation. The patient is NOT able to make decisions on her own. She was verbal, awake, however at times not making sense and not following commands. Does not know place or time. I was later informed that the patient is going to be moved back to [facility]. Cesar Blake
--- NOTE | 2018-02-25 15:47 | CP.PCM.CON ---
History of Present Illness - History of Present Illness History of Present Illness: 77 yo F with history diabetes, chf, anemia was sent by [facility] for bilateral toe wounds/ulcers/gangrene for possible revasc pending angiogram Review of Systems - Review of Systems All systems: reviewed and no additional remarkable complaints except - Constitutional Constitutional: As Per HPI - EENT Eyes: absent: As Per HPI, Blind Spots, Blurred Vision, Change in Vision, Decreased Night Vision, Diplopia, Discharge, Dry Eye, Exophthalmos, Floaters, Irritation, Itchy Eyes, Loss of Peripheral Vision, Pain, Photophobia, Requires Corrective Lenses, Sees Flashes, Spots in Vision, Tunnel Vision, Other Visual Disturbances, Loss of Vision, Other Ears: absent: As Per HPI, Decreased Hearing, Ear Discharge, Ear Pain, Tinnitus, Abnormal Hearing, Disequilibrium, Dizziness, Other Nose/Mouth/Throat: absent: As Per HPI, Epistaxis, Nasal Congestion, Nasal Discharge, Nasal Obstruction, Nasal Trauma, Nose Pain, Post Nasal Drip, Sinus Pain, Sinus Pressure, Bleeding Gums, Change in Voice, Dental Pain, Dry Mouth, Dysphagia, Halitosis, Hoarsness, Lip Swelling, Mouth Lesions, Mouth Pain, Odynophagia, Sore Throat, Throat Swelling, Tongue Swelling, Facial Pain, Neck Pain, Neck Mass, Other - Cardiovascular Cardiovascular: absent: As Per HPI, Acrocyanosis, Chest Pain, Chest Pain at Rest , Chest Pain with Activity, Claudication, Diaphoresis, Dyspnea, Dyspnea on Exertion, Edema, Irregular Heart Rhythm, Pain Radiating to Arm/Neck/Jaw, Leg Edema, Leg Ulcers, Lightheadedness, Orthopnea, Palpitations, Paroxysmal Nocturnal Dyspnea, Pedal Edema, Radiating Pain, Rapid Heart Rate, Slow Heart Rate, Syncope, Other - Respiratory Respiratory: absent: As Per HPI, Cough, Dyspnea, Hemoptysis, Dyspnea on Exertion , Wheezing, Snoring, Stridor, Pain on Inspiration, Chest Congestion, Excessive Mucous Production, Change in Mucous Color, Pain with Coughing, Other - Gastrointestinal Gastrointestinal: absent: As Per HPI, Abdominal Pain, Belching, Bloating, Change in Bowel Habits, Change in Stool Character, Coffee Ground Emesis, Constipation, Cramping, Diarrhea, Dyspepsia, Dysphagia, Early Satiety, Excessive Flatus, Fecal Incontinence, Heartburn, Hematemesis, Hematochezia, Loose Stools, Melena, Nausea, Odynophagia, Temesmus, Vomiting, Other - Genitourinary Genitourinary: absent: As Per HPI, Change in Urinary Stream, Difficulty Urinating, Dysuria, Flank Pain, Hematuria, Pyuria, Nocturia, Urinary Incontinence, Urinary Frequency, Urinary Hesitance, Urinary Urgency, Voiding Freq/Small Amts, Freq UTI, Hx Renal/Bladder Calculi, Hx /Renal Surgery, Bladder Distension, Other - Reproductive: Female Reproductive:Female: absent: As Per HPI, Amenorrhea, Amenorrhea/ Control, Currently Menstual, Cycle <21 Days, Cycle >35 Days, Cycle Variable, Menses 1-7 Days, Menses >/= 8 Days, Menses Variable, Cycle > 4 Weeks Between, No Menses for 6 Months, Heavy Menses, Light Menses, Normal Menses, Spotting Between Cycles , S/P Hysterectomy, Menopausal, Post Menopausal, Premenarche, Abnormal Vaginal Bleeding, Dysmenorrhea, Dyspareunia, Genital Lesions, Genital Pruritis, Pelvic Pain, Prolapse Symptoms, Sexual Dysfunction, Vaginal Discharge, Vaginal Dryness , Vaginal Odor, Vaginal Pruritis, Other - Menstruation Menstruation: absent: As Per HPI, Amenorrhea, Amenorrhea/ Control, Currently Menstual, Cycle <21 Days, Cycle >35 Days, Cycle Variable, Menses 1-7 Days, Menses >/= 8 Days, Menses Variable, Cycle > 4 Weeks Between, No Menses for 6 Months, Heavy Menses, Light Menses, Normal Menses, Spotting Between Cycles , S/P Hysterectomy, Menopausal, Post Menopausal, Premenarche, Abnormal Vaginal Bleeding, Dysmenorrhea, Other - Musculoskeletal Musculoskeletal: As Per HPI - Integumentary Integumentary: As Per HPI, Skin Pain, Wounds - Neurological Neurological: As Per HPI - Psychiatric Psychiatric: As Per HPI, Hallucinations - Endocrine Endocrine: absent: As Per HPI, Change in Body Appearance, Change in Libido, Cold Intolorance, Deepening of Voice, Excessive Sweating, Fatigue, Flushing, Heat Intolorance, Increase in Ring/Shoe/Hat Size, Palpitations, Polydipsia, Polyphagia, Polyuria, Other - Hematologic/Lymphatic Hematologic: absent: As Per HPI, Easy Bleeding, Easy Bruising, Lymphadenopathy, Other Past Patient History - Infectious Disease Hx of Infectious Diseases: None - Past Medical History & Family History Past Medical History?: Yes - Past Social History Smoking Status: Former Smoker - CARDIAC Hx Cardiac Disorders: Yes Hx Congestive Heart Failure: Yes Hx Hypercholesterolemia: Yes Hx Hypertension: Yes Hx Peripheral Edema: Yes - PULMONARY Hx Respiratory Disorders: Yes Hx Bronchitis: Yes Hx Chronic Obstructive Pulmonary Disease (COPD): Yes Hx Pneumonia: Yes - NEUROLOGICAL Hx Neurological Disorder: Yes Other/Comment: Paresthesias of both feet - HEENT Hx HEENT Problems: No - RENAL Hx Chronic Kidney Disease: No - ENDOCRINE/METABOLIC Hx Endocrine Disorders: Yes Hx Hyperthyroidism: Yes - HEMATOLOGICAL/ONCOLOGICAL Hx Blood Disorders: Yes Hx Anemia: Yes - INTEGUMENTARY Hx Dermatological Problems: Yes Hx Cellulitis: Yes - MUSCULOSKELETAL/RHEUMATOLOGICAL Hx Musculoskeletal Disorders: Yes Hx Falls: Yes - GASTROINTESTINAL Hx Gastrointestinal Disorders: No - GENITOURINARY/GYNECOLOGICAL Hx Genitourinary Disorders: No - PSYCHIATRIC Hx Psychophysiologic Disorder: Yes Hx Anxiety: Yes Hx Substance Use: No - SURGICAL HISTORY Hx Surgeries: Yes Hx Appendectomy: Yes Other/Comment: kidney stone removal - ANESTHESIA Hx Anesthesia: Yes Hx Anesthesia Reactions: No Hx Malignant Hyperthermia: No Has any member of the family had a problem w/ anesthesia?: No Meds Allergies/Adverse Reactions: Allergies Allergy/AdvReac Type Severity Reaction Status Date / Time No Known Allergies Allergy Verified 02/12/18 12:54 - Medications Medications: Current Medications Bisacodyl (Dulcolax) 10 mg [place] DAILY PRN PRN Reason: Constipation Docusate Sodium (Colace) 100 mg PO DAILY [facility] Last Admin: 02/25/18 10:04 Dose: 100 mg Famotidine (Pepcid) 20 mg PO DAILY [facility] Last Admin: 02/25/18 10:04 Dose: 20 mg Sodium Chloride (Sodium Chloride 0.9%) 1,000 mls @ 50 mls/hr IV .Q20H [facility] Cefepime HCl (Maxipime Iv 1 Gm Premix) 1 gm in 50 mls @ 100 mls/hr IVPB Q24H [facility] PRN Reason: Protocol Last Admin: 02/25/18 04:53 Dose: 100 mls/hr Heparin Sodium/Sodium Chloride (Heparin 42091 Units/250ml 1/2 Normal Saline) 25 ,000 units in 250 mls @ 9.934 mls/hr IV .Q24H PRN; Protocol; 15 UNITS/KG/HR PRN Reason: ADJUST RATE PER PROTOCOL Last Admin: 02/25/18 10:19 Dose: 15 units/kg/hr, 9.934 mls/hr Isosorbide Mononitrate (Imdur Er) 30 mg PO DAILY [facility] Last Admin: 02/25/18 10:06 Dose: 30 mg Memantine (Namenda) 5 mg PO BID [facility] Last Admin: 02/25/18 10:04 Dose: 5 mg Metoprolol Tartrate (Lopressor) 25 mg PO Q12 [facility] Last Admin: 02/25/18 10:04 Dose: 25 mg Multivitamins (Hexavitamin) 1 tab PO DAILY [facility] Last Admin: 02/25/18 10:04 Dose: 1 tab Oxycodone/Acetaminophen (Percocet 5/325 Mg Tab) 1 tab PO Q4 PRN PRN Reason: Pain, moderate (4-7) Stop: 02/28/18 01:48 Pneumococcal Polyvalent Vaccine (Pneumovax 23 Vaccine) 0.5 ml IM .ONCE ONE Stop: 02/27/18 10:01 Saccharomyces Boulardii (Florastor) 250 mg PO BID [facility] Last Admin: 02/25/18 10:04 Dose: 250 mg Physical Exam - Constitutional Appears: Confused, Cachectic, Chronically Ill - Head Exam Head Exam: ATRAUMATIC, NORMOCEPHALIC - Eye Exam Eye Exam: absent: Scleral icterus - ENT Exam ENT Exam: Mucous Membranes Dry - Neck Exam Neck exam: Negative for: Lymphadenopathy - Respiratory Exam Respiratory Exam: Decreased Breath Sounds, Clear to Auscultation Bilateral - Cardiovascular Exam Cardiovascular Exam: REGULAR RHYTHM, +S1, +S2 - GI/Abdominal Exam GI & Abdominal Exam: Diminished Bowel Sounds, Soft. absent: Tenderness - Rectal Exam Rectal Exam: Deferred - Exam Exam: NORMAL INSPECTION - Extremities Exam Extremities exam: Positive for: calf tenderness, pedal edema, tenderness. Negative for: normal inspection, pedal pulses present Additional comments: multiple ulcers - Back Exam Back exam: absent: CVA tenderness (L), CVA tenderness (R) - Neurological Exam Neurological exam: Alert, CN II-XII Intact, Reflexes Normal - Psychiatric Exam Psychiatric exam: Depressed - Skin Skin Exam: Dry Results - Vital Signs Recent Vital Signs: Last Vital Signs Temp 97.6 F 02/25/18 07:00 Pulse 91 H 02/25/18 07:55 Resp 18 02/25/18 07:00 BP 130/77 02/25/18 10:04 Pulse Ox 100 02/25/18 07:00 - Labs Result Diagrams: 02/25/18 02:01 02/25/18 02:01 Labs: Laboratory Results - last 24 hr 02/24/18 02/24/18 02/24/18 17:48 21:40 23:00 WBC RBC Hgb Hct MCV MCH MCHC RDW Plt Count MPV Neut % (Auto) Lymph % (Auto) [place] % (Auto) Eos % (Auto) Baso % (Auto) Neut # (Auto) Lymph # (Auto) [place] # (Auto) Eos # (Auto) Baso # (Auto) Neutrophils % (Manual) Lymphocytes % (Manual) Monocytes % (Manual) Platelet Estimate Polychromasia Hypochromasia (manual) Anisocytosis (manual) Microcytosis (manual) Ovalocytes PT 13.6 H INR 1.2 APTT 66 H Sodium Potassium Chloride Carbon Dioxide Anion Gap BUN Creatinine Est GFR ( Amer) Est GFR (Non-Af Amer) POC Glucose (mg/dL) 104 Random Glucose Calcium Phosphorus Magnesium Total Bilirubin AST ALT Alkaline Phosphatase Total Protein Albumin Globulin Albumin/Globulin Ratio Blood Type Cancelled Antibody Screen Cancelled 02/25/18 02/25/18 02/25/18 02:01 02:01 02:01 WBC 11.3 H RBC 3.53 L Hgb 8.3 L Hct 26.7 L MCV 75.6 L MCH 23.4 L MCHC 30.9 L RDW 22.6 H Plt Count 251 MPV 8.2 Neut % (Auto) 89.8 H Lymph % (Auto) 4.2 L [place] % (Auto) 5.9 Eos % (Auto) 0.0 Baso % (Auto) 0.1 Neut # (Auto) 10.2 H Lymph # (Auto) 0.5 L [place] # (Auto) 0.7 Eos # (Auto) 0.0 Baso # (Auto) 0.0 Neutrophils % (Manual) 90 H Lymphocytes % (Manual) 4 L Monocytes % (Manual) 6 Platelet Estimate Normal Polychromasia Slight Hypochromasia (manual) Slight Anisocytosis (manual) Moderate Microcytosis (manual) Slight Ovalocytes Slight PT INR APTT 90 H D Sodium 139 Potassium 4.2 Chloride 111 H Carbon Dioxide 20 L Anion Gap 13 BUN 32 H Creatinine 0.9 Est GFR ( Amer) > 60 Est GFR (Non-Af Amer) > 60 POC Glucose (mg/dL) Random Glucose 92 Calcium 8.6 Phosphorus 2.9 Magnesium 1.8 Total Bilirubin 0.9 AST 15 ALT 30 Alkaline Phosphatase 118 Total Protein 5.3 L Albumin 2.3 L Globulin 3.0 Albumin/Globulin Ratio 0.8 L Blood Type Antibody Screen 02/25/18 02/25/18 02/25/18 06:20 08:36 11:01 WBC RBC Hgb Hct MCV MCH MCHC RDW Plt Count MPV Neut % (Auto) Lymph % (Auto) [place] % (Auto) Eos % (Auto) Baso % (Auto) Neut # (Auto) Lymph # (Auto) [place] # (Auto) Eos # (Auto) Baso # (Auto) Neutrophils % (Manual) Lymphocytes % (Manual) Monocytes % (Manual) Platelet Estimate Polychromasia Hypochromasia (manual) Anisocytosis (manual) Microcytosis (manual) Ovalocytes PT INR APTT 229 H* D Sodium Potassium Chloride Carbon Dioxide Anion Gap BUN Creatinine Est GFR ( Amer) Est GFR (Non-Af Amer) POC Glucose (mg/dL) 95 95 Random Glucose Calcium Phosphorus Magnesium Total Bilirubin AST ALT Alkaline Phosphatase Total Protein Albumin Globulin Albumin/Globulin Ratio Blood Type Antibody Screen Assessment & Plan (1) Dementia Status: Acute (2) PVD (peripheral vascular disease) Status: Acute (3) Cellulitis, leg Status: Acute - Assessment and Plan (Free Text) Assessment: cont rx leg ulcers/ vascular gangrene s/p angio await decision rx vs amp
[2018-02-25] MEDS: Oxycodone/Acetaminophen 5/325 mg Tab PO PRN (18:16)
--- NOTE | 2018-02-25 18:26 | CP.PCM.PN ---
Subjective - Date & Time of Evaluation Date of Evaluation: 02/25/18 Time of Evaluation: 12:00 - Subjective Subjective: Vascular Surgery Progress Note for Dr. Trent Patient was seen and examined today at bedside in no acute distress. Nurse reports straight cath for urine since patient unable to express although feels the urge to urinate. Patient complains of no new problems. Is disoriented to whereabouts and ongoings. Refused treatment, procedures, and interview despite multiple visits. Unable to obtain ROS due to uncooperation and AMS. Objective - Vital Signs/Intake and Output Vital Signs (last 24 hours): Temp Pulse Resp BP Pulse Ox 98.1 F 74 20 114/68 99 02/25/18 15:00 02/25/18 15:00 02/25/18 15:00 02/25/18 15:00 02/25/18 15:00 Intake and Output: 02/25/18 02/25/18 06:59 18:59 Intake Total 194 859 Balance 194 859 - Medications Medications: Current Medications Bisacodyl (Dulcolax) 10 mg [place] DAILY PRN PRN Reason: Constipation Docusate Sodium (Colace) 100 mg PO DAILY [facility] Last Admin: 02/25/18 10:04 Dose: 100 mg Enoxaparin Sodium (Lovenox) 60 mg SC Q12 [facility] Famotidine (Pepcid) 20 mg PO DAILY [facility] Last Admin: 02/25/18 10:04 Dose: 20 mg Sodium Chloride (Sodium Chloride 0.9%) 1,000 mls @ 50 mls/hr IV .Q20H [facility] Cefepime HCl (Maxipime Iv 1 Gm Premix) 1 gm in 50 mls @ 100 mls/hr IVPB Q24H [facility] PRN Reason: Protocol Last Admin: 02/25/18 04:53 Dose: 100 mls/hr Isosorbide Mononitrate (Imdur Er) 30 mg PO DAILY [facility] Last Admin: 02/25/18 10:06 Dose: 30 mg Memantine (Namenda) 5 mg PO BID [facility] Last Admin: 02/25/18 18:16 Dose: 5 mg Metoprolol Tartrate (Lopressor) 25 mg PO Q12 [facility] Last Admin: 02/25/18 10:04 Dose: 25 mg Multivitamins (Hexavitamin) 1 tab PO DAILY [facility] Last Admin: 02/25/18 10:04 Dose: 1 tab Oxycodone/Acetaminophen (Percocet 5/325 Mg Tab) 1 tab PO Q4 PRN PRN Reason: Pain, moderate (4-7) Stop: 02/28/18 01:48 Last Admin: 02/25/18 18:16 Dose: 1 tab Pneumococcal Polyvalent Vaccine (Pneumovax 23 Vaccine) 0.5 ml IM .ONCE ONE Stop: 02/27/18 10:01 Saccharomyces Boulardii (Florastor) 250 mg PO BID [facility] Last Admin: 02/25/18 18:16 Dose: 250 mg - Labs Labs: 02/25/18 02:01 02/25/18 02:01 PT 13.6 SECONDS (9.7-12.2) H 02/24/18 17:48 INR 1.2 02/24/18 17:48 APTT 229 SECONDS (21-34) H* D 02/25/18 08:36 - Constitutional Appears: Non-toxic, No Acute Distress - Head Exam Head Exam: NORMOCEPHALIC - Eye Exam Eye Exam: Normal appearance - ENT Exam ENT Exam: Mucous Membranes Moist, Normal Exam - Respiratory Exam Respiratory Exam: NORMAL BREATHING PATTERN - Cardiovascular Exam Cardiovascular Exam: +S1, +S2 - GI/Abdominal Exam GI & Abdominal Exam: Soft, Normal Bowel Sounds. absent: Firm, Tenderness, Hernia - Extremities Exam Additional comments: obvious gangrenous toes, dorsal feet, and calves bilaterally. cool to touch, decrease in sensation - Neurological Exam Neurological Exam: Altered Assessment and Plan - Assessment and Plan (Free Text) Assessment: 77yoF with gangrenous LE bilaterally 2/2 PVD Plan: - rec bilateral AKA vs. hospice - patient refused further testing, including US - medical management per primary team - further recs per Dr. Miley Christianson PGY1
[2018-02-25] MEDS: Enoxaparin 60 mg Syringe SC SCH (21:46)
[2018-02-26] MEDS: Cefepime IV 1 gm in Dextrose 1 GM/50 ML BAG IVPB SCH (03:27)
[2018-02-26 08:04] LABS: HEMOGLOBIN 8.1 g/dL (11.0-16.0); MEAN PLATELET VOLUME 8.3 fL (7.2-11.7); PLATELET COUNT 214 K/uL (130-400); WHITE BLOOD COUNT 11.7 K/uL (4.8-10.8)
[2018-02-26 08:22] LABS: BASO % 0.1 % (0.0-2.0); LYMPH # 0.5 K/uL (1.0-4.3); LYMPH % 4.2 % (20.0-40.0); MEAN CORPUSCULAR HEMOGLOBIN 23.5 pg (27.0-31.0); MEAN CORPUSCULAR HGB CONC 30.1 g/dL (33.0-37.0); MONO # 0.8 K/uL (0.0-0.8); MONO % 6.5 % (0.0-10.0); NEUT # 10.5 K/uL (1.8-7.0); NEUT % 89.2 % (50.0-75.0); NRBC % 0.4 % (0.0-2.0); RBC 3.46 Mil/uL (3.80-5.20); RED CELL DISTRIBUTION WIDTH 22.7 % (11.5-14.5)
[2018-02-26 08:23] LABS: MEAN CELL VOLUME 78.1 fL (81.0-99.0)
[2018-02-26 08:37] LABS: ALB/GLOB RATIO 0.9 (1.0-2.1); ALBUMIN 2.5 g/dL (3.5-5.0); ALT/SGPT 27 U/L (9-52); AST/SGOT 18 U/L (14-36); BLOOD UREA NITROGEN 33 mg/dL (7-17); CALCIUM 8.2 mg/dl (8.6-10.4); GFR AFRICAN-AMERICAN > 60; GFR NON-AFRICAN AMERICAN > 60
[2018-02-26] MEDS: Sodium Chloride 0.9% 1,000 ML IV SCH (08:45)
[2018-02-26 09:18] LABS: ANISOCYTOSIS MODERATE; LYMPHOCYTE 3 % (20-40); MONOCYTE 5 % (0-10); MYELOCYTE 1 % (0-0); NEUTROPHIL 91 % (50-75); PLATELET ESTIMATE NORMAL (NORMAL); TOTAL CELLS COUNTED 100
[2018-02-26 09:19] LABS: HYPOCHROMIC MODERATE; OVALOCYTES SLIGHT; POLYCHROMIC SLIGHT
[2018-02-26 09:20] LABS: MICROCYTOSIS SLIGHT
--- NOTE | 2018-02-26 09:52 | CP.PCM.PN ---
Subjective - Date & Time of Evaluation Date of Evaluation: 02/26/18 Time of Evaluation: 09:00 - Subjective Subjective: Zach Rico, PGY1 Cardiology Progress Note for Dr. Puente Patient was examined at bedside this morning. Patient was more alert and awake compared to yesterday. Patient was saying that she doesn't feel well and was requesting pain meds. She refused lower extremity US yesterday evening. Patient was explained the results of her angiogram from 02/24 and the importance of intervention. She is currently refusing any surgeries and procedures. Otherwise , an appropriate review of systems was unable to be obtained since patient is a poor historian. No changes overnight or as per nursing staff. Objective - Vital Signs/Intake and Output Vital Signs (last 24 hours): Temp Pulse Resp BP Pulse Ox 97.8 F 95 H 18 115/64 100 02/26/18 07:00 02/26/18 07:35 02/26/18 07:00 02/26/18 07:00 02/26/18 07:00 - Medications Medications: Current Medications Bisacodyl (Dulcolax) 10 mg [place] DAILY PRN PRN Reason: Constipation Docusate Sodium (Colace) 100 mg PO DAILY [facility] Last Admin: 02/25/18 10:04 Dose: 100 mg Enoxaparin Sodium (Lovenox) 60 mg SC Q12 [facility] Last Admin: 02/25/18 21:46 Dose: 60 mg Famotidine (Pepcid) 20 mg PO DAILY [facility] Last Admin: 02/25/18 10:04 Dose: 20 mg Sodium Chloride (Sodium Chloride 0.9%) 1,000 mls @ 50 mls/hr IV .Q20H [facility] Cefepime HCl (Maxipime Iv 1 Gm Premix) 1 gm in 50 mls @ 100 mls/hr IVPB Q24H [facility] PRN Reason: Protocol Last Admin: 02/26/18 03:27 Dose: 100 mls/hr Isosorbide Mononitrate (Imdur Er) 30 mg PO DAILY [facility] Last Admin: 02/25/18 10:06 Dose: 30 mg Memantine (Namenda) 5 mg PO BID [facility] Last Admin: 02/25/18 18:16 Dose: 5 mg Metoprolol Tartrate (Lopressor) 25 mg PO Q12 [facility] Last Admin: 02/25/18 21:46 Dose: 25 mg Multivitamins (Hexavitamin) 1 tab PO DAILY [facility] Last Admin: 02/25/18 10:04 Dose: 1 tab Oxycodone/Acetaminophen (Percocet 5/325 Mg Tab) 1 tab PO Q4 PRN PRN Reason: Pain, moderate (4-7) Stop: 02/28/18 01:48 Last Admin: 02/25/18 18:16 Dose: 1 tab Pneumococcal Polyvalent Vaccine (Pneumovax 23 Vaccine) 0.5 ml IM .ONCE ONE Stop: 02/27/18 10:01 Saccharomyces Boulardii (Florastor) 250 mg PO BID [facility] Last Admin: 02/25/18 18:16 Dose: 250 mg - Labs Labs: 02/26/18 07:48 02/26/18 07:48 PT 13.6 SECONDS (9.7-12.2) H 02/24/18 17:48 INR 1.2 02/24/18 17:48 APTT 229 SECONDS (21-34) H* D 02/25/18 08:36 - Constitutional Appears: Confused - Head Exam Head Exam: ATRAUMATIC, NORMAL INSPECTION, NORMOCEPHALIC - Eye Exam Eye Exam: EOMI, Normal appearance, PERRL - ENT Exam ENT Exam: Mucous Membranes Moist - Neck Exam Neck Exam: Full ROM - Respiratory Exam Respiratory Exam: Clear to Ausculation Bilateral. absent: Accessory Muscle Use , Chest Wall Tenderness, Rales, Rhonchi, Wheezes - Cardiovascular Exam Cardiovascular Exam: RRR, +S1, +S2 - GI/Abdominal Exam GI & Abdominal Exam: Soft, Normal Bowel Sounds. absent: Distended, Guarding, Rigid, Tenderness, Rebound - Extremities Exam Extremities Exam: Tenderness. absent: Joint Swelling, Pedal Edema Additional comments: Cold, gangrenous lower extremity bilaterally. Dressing applied bilaterally. Foul odor. Minimal ROM of bilateral LE. - Neurological Exam Neurological Exam: Alert (AAOx2), Awake. absent: Oriented x3 Neuro motor strength exam: Left Upper Extremity: 4, Right Upper Extremity: 4, Left Lower Extremity: 3, Right Lower Extremity: 3 - Skin Skin Exam: Abrasion, Dry. absent: Warm Assessment and Plan - Assessment and Plan (Free Text) Assessment: Patient is a 77 y/o F with PMHx of PVD (b/l iliac stent 01/07, Dr. Puente), CAD, CHF, COPD, DM, who presented to [facility] for worsening bilateral ulcers with gangrenous toes. Patient has poor mental status and has appeared lethargic during hospital course. Tib/Fib Xray showed multiple ulcers of LE without osteo. Patient requires vascular surgery: GUEST RELATIONS AGENT endartarectomy. Patient transferred to [facility] and evaluated by cardiology via angiogram of the lower extremity. Patient is at moderate risk and may proceed with vascular surgery. At this current moment, patient is refusing all surgeries and procedures. Plan: Lower Extremity Arterial Insufficiency with gangrene - Patient refusing all procedures/surgeries. - Vascular surgery: plan for GUEST RELATIONS AGENT endarterectomy. Possible need for RLE amputation, possible LLE bypass. - Angiogram (02/24): complete occlusion of left G[employer]ST [employer]ATIONS [employer]ENT with collateral flow to left PFA. Patient is moderate risk for procedure but may undergo vascular surgery. - Hx of PVD (b/l iliac stents on 01/07) - f/u ID recs Dementia - AAOx2 - Poor historian and baseline mental status - Has not properly verbalized consent for vascular surgery - c/w memantine DM - Last Hgb A1c was 5.9 - c/w Accuchecks - Maintain euglycemia GI ppx: Pepcid DVT ppx: Heparin gtt Dispo: Patient is s/p angio and moderate risk for vascular surgery. Currently refusing procedures/surgeries. Case was discussed and reviewed with Gear Shaper Set Up Operator, Dr. Puente. Please see any further recommendations as per Dr. Puente.
[2018-02-26] MEDS: Multiple Vitamins Tab PO SCH (10:17)
[2018-02-26] MEDS: Saccharomyces Boulardi 250 mg Cap PO SCH ×2 (10:17→18:21)
[2018-02-26] MEDS: Enoxaparin 60 mg Syringe SC SCH ×2 (10:18→22:30)
[2018-02-26] MEDS ORDERED: Vancomycin 1 gm/NS 200 ml 1 GM/200 ML BAG IVPB SCH (12:00)
[2018-02-26] MEDS: Oxycodone/Acetaminophen 5/325 mg Tab PO PRN (12:51)
--- NOTE | 2018-02-26 13:23 | CP.PCM.PN ---
<Brittany Beaulieu - Last Filed: 02/26/18 16:07> Subjective - Date & Time of Evaluation Date of Evaluation: 02/26/18 Time of Evaluation: 13:12 - Subjective Subjective: PGY-1 Medicine Progress Note for Dr. Blake's Service Patient seen and examined at bedside. Patient is likely confused as she is able to answer certain questions and others inaccurately. Patient does report leg pain bilaterally and requests stronger pain medications instead of percocet. Patient's mental status to make medical decisions herself is questionable at this time. Patient's next of kin David was contacted to discuss his thoughts on the possible treatment as patient likely unable to make decisions competently herself. Patient's nephew states he would like some time to think it over. He was explained that the options right now are for possible bilateral above knee amputations vs hospice where we can make keep her comfortable. Patient herself expresses no further treatment to multiple teams including cardiology and vascular surgery team and medicine team. We would like to respect her wishes but at this time we do not believe she is competent to make medical decisions. If patient does not have the bilateral AKA it is likely the infection will continue due to arterial insufficiency and symptoms will worsen until she will require invasive intervention to keep her alive. This information was explained to her nephew David and he asked for a call back today at 4:30 pm to discuss what he would like to do going forward. Objective - Vital Signs/Intake and Output Vital Signs (last 24 hours): Temp Pulse Resp BP Pulse Ox 97.8 F 90 18 109/66 100 02/26/18 07:00 02/26/18 10:16 02/26/18 07:00 02/26/18 10:17 02/26/18 07:00 - Medications Medications: Current Medications Bisacodyl (Dulcolax) 10 mg [place] DAILY PRN PRN Reason: Constipation Docusate Sodium (Colace) 100 mg PO DAILY REPLACED BY [facility] Last Admin: 02/26/18 10:17 Dose: 100 mg Enoxaparin Sodium (Lovenox) 60 mg SC Q12 REPLACED BY [facility] Last Admin: 02/26/18 10:18 Dose: 60 mg Famotidine (Pepcid) 20 mg PO DAILY REPLACED BY [facility] Last Admin: 02/26/18 10:17 Dose: 20 mg Sodium Chloride (Sodium Chloride 0.9%) 1,000 mls @ 50 mls/hr IV .Q20H REPLACED BY [facility] Last Admin: 02/26/18 08:45 Dose: Not Given Cefepime HCl (Maxipime Iv 1 Gm Premix) 1 gm in 50 mls @ 100 mls/hr IVPB Q24H [facility] PRN Reason: Protocol Last Admin: 02/26/18 03:27 Dose: 100 mls/hr Vancomycin/Sodium Chloride (Vancomycin 1 Gm/Ns 200 Ml) 1 gm in 200 mls @ 133.333 mls/hr IVPB Q24H REPLACED BY [facility] PRN Reason: Protocol Stop: 03/03/18 13:01 Isosorbide Mononitrate (Imdur Er) 30 mg PO DAILY REPLACED BY [facility] Last Admin: 02/26/18 10:18 Dose: 30 mg Memantine (Namenda) 5 mg PO BID REPLACED BY [facility] Last Admin: 02/26/18 10:18 Dose: 5 mg Metoprolol Tartrate (Lopressor) 25 mg PO Q12 REPLACED BY [facility] Last Admin: 02/26/18 10:17 Dose: 25 mg Multivitamins (Hexavitamin) 1 tab PO DAILY REPLACED BY [facility] Last Admin: 02/26/18 10:17 Dose: 1 tab Oxycodone/Acetaminophen (Percocet 5/325 Mg Tab) 1 tab PO Q4 PRN PRN Reason: Pain, moderate (4-7) Stop: 02/28/18 01:48 Last Admin: 02/26/18 12:51 Dose: 1 tab Pneumococcal Polyvalent Vaccine (Pneumovax 23 Vaccine) 0.5 ml IM .ONCE ONE Stop: 02/27/18 10:01 Saccharomyces Boulardii (Florastor) 250 mg PO BID REPLACED BY [facility] Last Admin: 02/26/18 10:17 Dose: 250 mg - Labs Labs: 02/26/18 07:48 02/26/18 07:48 PT 13.6 SECONDS (9.7-12.2) H 02/24/18 17:48 INR 1.2 02/24/18 17:48 APTT 229 SECONDS (21-34) H* D 02/25/18 08:36 - Constitutional Appears: In Acute Distress, Confused - Head Exam Head Exam: NORMAL INSPECTION, NORMOCEPHALIC - Eye Exam Eye Exam: Normal appearance. absent: Nystagmus, Scleral icterus - Respiratory Exam Respiratory Exam: Clear to Ausculation Bilateral, NORMAL BREATHING PATTERN. absent: Rales, Respiratory Distress - Cardiovascular Exam Cardiovascular Exam: REGULAR RHYTHM, +S1, +S2. absent: Tachycardia, Murmur - GI/Abdominal Exam GI & Abdominal Exam: Soft, Normal Bowel Sounds. absent: Distended, Firm, Guarding, Tenderness - Extremities Exam Additional comments: bilateral gangrene toes with necrotic tissue spread up to below knee foul odor with wound dressing currently - Neurological Exam Neurological Exam: Altered. absent: Alert, Oriented x3 - Psychiatric Exam Psychiatric exam: Anxious. absent: Normal Affect, Normal Mood - Skin Skin Exam: Dry, Normal Color. absent: Diaphoretic, Rash Assessment and Plan - Assessment and Plan (Free Text) Assessment: Pt is a 77 yo female with PMH of COPD, DM, CAD, CHF, Chronic anemia and PVD with non-healing bilateral lower extremity wounds; angioplasty was done on 01/07 with bilateral iliac stent placement; however patient returned to the hospital for worsening bilateral LE gangrene; Plan: Gangrene due to arterial insufficiency Consultations: Customer Experience Analyst: Dr. Puente Vascular Surgeon: Dr. Trent Infectious Disease: Dr. Powers Vascular recommends: Bilateral AKA vs Hospice Cardiology: took patient for cardiac cath; awaiting full read Infectious disease: recommendations appreciated Awaiting conversation with nephew for possible DNR/DNI vs b/l AKA surgery (02/12/18) leg wound culture positive for: Providencia Rettgeri and E.coli Medications: Heparin drip Percocet 1 tab PO Q4H PRN Imdur ER 30mg PO daily Cefepime 1gm IV daily Florastor 250mg PO BID Vancomycin 1g IV daily Metabolic Acidosis HCO3 14 Likely secondary to patient's arterial insufficiency and infection of the lower extremities bilaterally Dementia Memantine 5mg PO BID Constipation Duclolax 10mg WI PRN Colace 100mg PO daily Hypertension Lopressor 25mg PO Q12 History of diabetes mellitus HgbA1C (02/14/18): 5.9 Accuchecks History of anemia H/H stable 8.8/.7 Will continue to monitor with labs and reassess the need for transfusion ARNIE (acute kidney injury) Resolving NS @ 100mls/cc Prophylactic measure GI: Pepcid 20mg PO daily DVT: Heparin Drip Plan is to have discussion with nephew. Appreciate his input as patient is AMS/ confused/baseline dementia and not competent to make medical decisions for herself currently. Medical Management discussed with Dr. Blake <Cesar Blake - Last Filed: 02/26/18 16:19> Objective - Vital Signs/Intake and Output Vital Signs (last 24 hours): Temp Pulse Resp BP Pulse Ox 97.5 F L 71 18 108/65 97 02/26/18 16:00 02/26/18 16:00 02/26/18 16:00 02/26/18 16:00 02/26/18 16:00 - Medications Medications: Current Medications Bisacodyl (Dulcolax) 10 mg WI DAILY PRN PRN Reason: Constipation Docusate Sodium (Colace) 100 mg PO DAILY REPLACED BY [facility] Last Admin: 02/26/18 10:17 Dose: 100 mg Enoxaparin Sodium (Lovenox) 60 mg SC Q12 REPLACED BY [facility] Last Admin: 02/26/18 10:18 Dose: 60 mg Famotidine (Pepcid) 20 mg PO DAILY REPLACED BY [facility] Last Admin: 02/26/18 10:17 Dose: 20 mg Sodium Chloride (Sodium Chloride 0.9%) 1,000 mls @ 50 mls/hr IV .Q20H REPLACED BY [facility] Last Admin: 02/26/18 08:45 Dose: Not Given Cefepime HCl (Maxipime Iv 1 Gm Premix) 1 gm in 50 mls @ 100 mls/hr IVPB Q24H [facility] PRN Reason: Protocol Last Admin: 02/26/18 03:27 Dose: 100 mls/hr Vancomycin/Sodium Chloride (Vancomycin 1 Gm/Ns 200 Ml) 1 gm in 200 mls @ 133.333 mls/hr IVPB Q24H [facility] PRN Reason: Protocol Stop: 03/03/18 13:01 Last Admin: 02/26/18 13:50 Dose: 133.333 mls/hr Isosorbide Mononitrate (Imdur Er) 30 mg PO DAILY REPLACED BY [facility] Last Admin: 02/26/18 10:18 Dose: 30 mg Memantine (Namenda) 5 mg PO BID REPLACED BY [facility] Last Admin: 02/26/18 10:18 Dose: 5 mg Metoprolol Tartrate (Lopressor) 25 mg PO Q12 REPLACED BY [facility] Last Admin: 02/26/18 10:17 Dose: 25 mg Multivitamins (Hexavitamin) 1 tab PO DAILY REPLACED BY [facility] Last Admin: 02/26/18 10:17 Dose: 1 tab Oxycodone/Acetaminophen (Percocet 5/325 Mg Tab) 1 tab PO Q4 PRN PRN Reason: Pain, moderate (4-7) Stop: 02/28/18 01:48 Last Admin: 02/26/18 12:51 Dose: 1 tab Pneumococcal Polyvalent Vaccine (Pneumovax 23 Vaccine) 0.5 ml IM .ONCE ONE Stop: 02/27/18 10:01 Saccharomyces Boulardii (Florastor) 250 mg PO BID [facility] Last Admin: 02/26/18 10:17 Dose: 250 mg - Labs Labs: 02/26/18 07:48 02/26/18 07:48 PT 13.6 SECONDS (9.7-12.2) H 02/24/18 17:48 INR 1.2 02/24/18 17:48 APTT 229 SECONDS (21-34) H* D 02/25/18 08:36 Attending/Attestation - Attestation I have personally seen and examined this patient.: Yes I have fully participated in the care of the patient.: Yes I have reviewed all pertinent clinical information, including history, physical exam and plan: Yes Notes (Text): 02/26/18 16:13 Medical attending: Patient was seen and examined by me. Agree with the above note by the resident I greatly appreciate vascular surgery evaluation of the patient and we reviewed the photos of the area with the gangre - they are very extensive and I feel that unless she has bilateral amputation soon the necrosis will become life threatening. The patient has what appears o be advanced dementia and does not follow commands. However she is able to say to us that she does not want anything done. However considering her mental status we do have to review the case with family member and the medical secretary teacher was able to notify family members of the situation. For now she is on IV cefpime. We are going to add on vancomycin IV in the mean time considering how extensive the gangre is. If she becomes more septic or her serum bicarb becomes lower then we will need to do the whole ABG. lactic acid level route but for now will continue to monitor. Reguardless the overall prognosis is not good. Cesar Blake
[2018-02-26] MEDS: Vancomycin 1 gm/NS 200 ml 1 GM/200 ML BAG IVPB SCH (13:50)
[2018-02-27] MEDS: Cefepime IV 1 gm in Dextrose 1 GM/50 ML BAG IVPB SCH (02:46)
[2018-02-27] MEDS: Sodium Chloride 0.9% 1,000 ML IV SCH (07:52)
--- NOTE | 2018-02-27 08:52 | CP.PCM.PN ---
Subjective - Date & Time of Evaluation Date of Evaluation: 02/27/18 Time of Evaluation: 08:00 - Subjective Subjective: Zach Rico, PGY1 Cardiology Progress Note for Dr. Puente Patient was seen and examined at bedside this morning. She is at her baseline mental status. No overnight changes. Patient was not giving adequate responses to questions during time of interview, as a result, ROS was not obtained. The primary team has discussed with the patient's family yesterday in regards to Bilateral AKA versus Hospice care. Patient was informed that she will be transferring back to [facility]. Objective - Vital Signs/Intake and Output Vital Signs (last 24 hours): Temp Pulse Resp BP Pulse Ox 97.4 F L 75 20 130/69 95 02/26/18 23:35 02/27/18 01:00 02/26/18 23:35 02/26/18 23:35 02/26/18 23:35 Intake and Output: 02/27/18 02/27/18 06:59 18:59 Intake Total 500 550 Output Total 600 200 Balance -100 350 - Medications Medications: Current Medications Bisacodyl (Dulcolax) 10 mg [place] DAILY PRN PRN Reason: Constipation Docusate Sodium (Colace) 100 mg PO DAILY [facility] Last Admin: 02/26/18 10:17 Dose: 100 mg Enoxaparin Sodium (Lovenox) 60 mg SC Q12 [facility] Last Admin: 02/26/18 22:30 Dose: 60 mg Famotidine (Pepcid) 20 mg PO DAILY [facility] Last Admin: 02/26/18 10:17 Dose: 20 mg Sodium Chloride (Sodium Chloride 0.9%) 1,000 mls @ 50 mls/hr IV .Q20H [facility] Last Admin: 02/27/18 07:52 Dose: Not Given Cefepime HCl (Maxipime Iv 1 Gm Premix) 1 gm in 50 mls @ 100 mls/hr IVPB Q24H [facility] PRN Reason: Protocol Last Admin: 02/27/18 02:46 Dose: 100 mls/hr Vancomycin/Sodium Chloride (Vancomycin 1 Gm/Ns 200 Ml) 1 gm in 200 mls @ 133.333 mls/hr IVPB Q24H [facility] PRN Reason: Protocol Stop: 03/03/18 13:01 Last Admin: 02/26/18 13:50 Dose: 133.333 mls/hr Isosorbide Mononitrate (Imdur Er) 30 mg PO DAILY [facility] Last Admin: 02/26/18 10:18 Dose: 30 mg Lisinopril (Zestril) 5 mg PO DAILY [facility] Memantine (Namenda) 5 mg PO BID [facility] Last Admin: 02/26/18 18:21 Dose: 5 mg Metoprolol Tartrate (Lopressor) 25 mg PO Q12 [facility] Last Admin: 02/26/18 22:30 Dose: 25 mg Multivitamins (Hexavitamin) 1 tab PO DAILY [facility] Last Admin: 02/26/18 10:17 Dose: 1 tab Oxycodone/Acetaminophen (Percocet 5/325 Mg Tab) 1 tab PO Q4 PRN PRN Reason: Pain, moderate (4-7) Stop: 02/28/18 01:48 Last Admin: 02/26/18 12:51 Dose: 1 tab Pneumococcal Polyvalent Vaccine (Pneumovax 23 Vaccine) 0.5 ml IM .ONCE ONE Stop: 02/27/18 10:01 Rosuvastatin Calcium (Crestor) 10 mg PO [facility] Saccharomyces Boulardii (Florastor) 250 mg PO BID [facility] Last Admin: 02/26/18 18:21 Dose: 250 mg - Labs Labs: 02/26/18 07:48 02/26/18 07:48 PT 13.6 SECONDS (9.7-12.2) H 02/24/18 17:48 INR 1.2 02/24/18 17:48 APTT 229 SECONDS (21-34) H* D 02/25/18 08:36 - Constitutional Appears: No Acute Distress - Head Exam Head Exam: ATRAUMATIC, NORMAL INSPECTION, NORMOCEPHALIC - Eye Exam Eye Exam: EOMI, Normal appearance, PERRL - ENT Exam ENT Exam: Mucous Membranes Moist - Neck Exam Neck Exam: Full ROM, Normal Inspection - Respiratory Exam Respiratory Exam: Clear to Ausculation Bilateral. absent: Accessory Muscle Use , Chest Wall Tenderness, Rales, Rhonchi, Wheezes, Respiratory Distress, Stridor - Cardiovascular Exam Cardiovascular Exam: RRR, +S1, +S2 - GI/Abdominal Exam GI & Abdominal Exam: Soft, Normal Bowel Sounds. absent: Firm, Guarding, Rigid, Tenderness, Organomegaly - Extremities Exam Extremities Exam: Tenderness. absent: Full ROM (Limited ROM of lower extremities bilaterally. ), Joint Swelling Additional comments: Gangrenous bilateral lower extremity. Dressing applied. Foul odor. - Neurological Exam Neurological Exam: Alert (AAOx2), Awake. absent: Oriented x3 - Skin Skin Exam: Dry, Pallor (Bilateral LE), Warm. absent: Diaphoretic Assessment and Plan - Assessment and Plan (Free Text) Assessment: Patient is a 77 y/o F with PMHx of PVD (b/l iliac stent 01/07, Dr. Puente), CAD, CHF, COPD, DM, who presented [facility] for worsening bilateral ulcers with gangrenous toes. Patient has poor mental status and has appeared lethargic during hospital course. Tib/Fib Xray showed multiple ulcers of LE without osteo. Patient transferred to 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 As determined by cardiology team, patient is at moderate risk and may proceed with vascular surgery. The recommendation as per vascular surgery is AKA versus hospice care. Patient has been refusing all procedures and surgeries, however, she has poor mental capacity. As a result, the primary team has discussed with patient's family about AKA versus hospice. Patient is pending transfer back to [place]. Plan: Lower Extremity Arterial Insufficiency with gangrene & History of Iliac Stents - Vascular surgery recs: Bilateral AKA versus Hospice care - Patient refusing all procedures/surgeries. Poor mental capacity. Primary team has d/w family (02/26) in regards to AKA versus Hospice care. - Angiogram (02/24): complete occlusion of left IC ENGINEER with collateral flow to left PFA. Patient is moderate risk for procedure but may undergo vascular surgery. - Hx of PVD (b/l iliac stents on 01/07) - started on Crestor for atherosclerotic disease and cardiovascular event protection - started on low dose ACEi - f/u ID recs Dementia - AAOx2 - Poor historian and baseline mental status - Has not properly verbalized consent for vascular surgery - c/w memantine DM - Last Hgb A1c was 5.9 - c/w Accuchecks - Maintain euglycemia GI ppx: Pepcid DVT ppx: Heparin gtt Code status: DNR/DNI Dispo: Patient is pending transfer to [facility] to the care of Dr. Lind. Case was discussed and reviewed with Powdered Sugar Supervisor, Dr. Puente. Please see any further recommendations as per Dr. Puente.
[2018-02-27 09:00] VITALS: RESP 18
[2018-02-27] MEDS ORDERED: Pneumococcal 23-Valent Vaccine IM ONE (10:00)
[2018-02-27] MEDS: Enoxaparin 60 mg Syringe SC SCH (10:10)
[2018-02-27] MEDS: Saccharomyces Boulardi 250 mg Cap PO SCH (10:10)
[2018-02-27] MEDS: Multiple Vitamins Tab PO SCH (10:10)
[2018-02-27] MEDS: Oxycodone/Acetaminophen 5/325 mg Tab PO PRN (12:12)
[2018-02-27] MEDS: Vancomycin 1 gm/NS 200 ml 1 GM/200 ML BAG IVPB SCH (13:28)
--- NOTE | 2018-02-27 14:32 | CP.PCM.DIS ---
<Brittany Beaulieu - Last Filed: 02/27/18 14:29> Provider - Provider Date of Admission: 02/24/18 12:13 Attending physician: Cesar Blake DO Time Spent in preparation of Discharge (in minutes): 45 Diagnosis - Discharge Diagnosis (1) PVD (peripheral vascular disease) Status: Acute (2) Bilateral leg ulcer Status: Acute (3) Gangrenous toe Status: Acute (4) Gangrene due to arterial insufficiency Status: Acute Priority: High Hospital Course - Lab Results Lab Results: Most Recent Lab Values WBC 11.7 K/uL (4.8-10.8) H 02/26/18 07:48 RBC 3.46 Mil/uL (3.80-5.20) L 02/26/18 07:48 Hgb 8.1 g/dL (11.0-16.0) L 02/26/18 07:48 Hct 27.0 % (34.0-47.0) L 02/26/18 07:48 MCV 78.1 fL (81.0-99.0) L D 02/26/18 07:48 MCH 23.5 pg (27.0-31.0) L 02/26/18 07:48 MCHC 30.1 g/dL (33.0-37.0) L 02/26/18 07:48 RDW 22.7 % (11.5-14.5) H 02/26/18 07:48 Plt Count 214 K/uL (130-400) 02/26/18 07:48 MPV 8.3 fL (7.2-11.7) 02/26/18 07:48 Neut % (Auto) 89.2 % (50.0-75.0) H 02/26/18 07:48 Lymph % (Auto) 4.2 % (20.0-40.0) L 02/26/18 07:48 Towns % (Auto) 6.5 % (0.0-10.0) 02/26/18 07:48 Eos % (Auto) 0.0 % (0.0-4.0) 02/26/18 07:48 Baso % (Auto) 0.1 % (0.0-2.0) 02/26/18 07:48 Neut # (Auto) 10.5 K/uL (1.8-7.0) H 02/26/18 07:48 Lymph # (Auto) 0.5 K/uL (1.0-4.3) L 02/26/18 07:48 Towns # (Auto) 0.8 K/uL (0.0-0.8) 02/26/18 07:48 Eos # (Auto) 0.0 K/uL (0.0-0.7) 02/26/18 07:48 Baso # (Auto) 0.0 K/uL (0.0-0.2) 02/26/18 07:48 Neutrophils % (Manual) 91 % (50-75) H 02/26/18 07:48 Lymphocytes % (Manual) 3 % (20-40) L 02/26/18 07:48 Monocytes % (Manual) 5 % (0-10) 02/26/18 07:48 Myelocytes % 1 % (0-0) H 02/26/18 07:48 Platelet Estimate Normal (NORMAL) 02/26/18 07:48 Polychromasia Slight 02/26/18 07:48 Hypochromasia (manual) Moderate 02/26/18 07:48 Anisocytosis (manual) Moderate 02/26/18 07:48 Microcytosis (manual) Slight 02/26/18 07:48 Ovalocytes Slight 02/26/18 07:48 PT 13.6 SECONDS (9.7-12.2) H 02/24/18 17:48 INR 1.2 02/24/18 17:48 APTT 229 SECONDS (21-34) H* D 02/25/18 08:36 Sodium 140 mmol/L (132-148) 02/26/18 07:48 Potassium 4.3 mmol/L (3.6-5.2) 02/26/18 07:48 Chloride 111 mmol/L (98-107) H 02/26/18 07:48 Carbon Dioxide 14 mmol/L (22-30) L 02/26/18 07:48 Anion Gap 19 (10-20) 02/26/18 07:48 BUN 33 mg/dL (7-17) H 02/26/18 07:48 Creatinine 0.8 mg/dL (0.7-1.2) 02/26/18 07:48 Est GFR ( Amer) > 60 02/26/18 07:48 Est GFR (Non-Af Amer) > 60 02/26/18 07:48 POC Glucose (mg/dL) 119 mg/dL (65-110) H 02/27/18 06:33 Random Glucose 96 mg/dL (65-105) 02/26/18 07:48 Calcium 8.2 mg/dl (8.6-10.4) L 02/26/18 07:48 Phosphorus 3.2 mg/dL (2.5-4.5) 02/26/18 07:48 Magnesium 1.7 mg/dL (1.6-2.3) 02/26/18 07:48 Total Bilirubin 1.0 mg/dL (0.2-1.3) 02/26/18 07:48 AST 18 U/L (14-36) 02/26/18 07:48 ALT 27 U/L (9-52) 02/26/18 07:48 Alkaline Phosphatase 101 U/L (38-126) 02/26/18 07:48 Total Protein 5.4 g/dL (6.3-8.3) L 02/26/18 07:48 Albumin 2.5 g/dL (3.5-5.0) L 02/26/18 07:48 Globulin 2.9 gm/dL (2.2-3.9) 02/26/18 07:48 Albumin/Globulin Ratio 0.9 (1.0-2.1) L 02/26/18 07:48 Blood Type Cancelled 02/24/18 23:00 Antibody Screen Cancelled 02/24/18 23:00 - Hospital Course Hospital Course: PMH: COPD, DM, CAD, CHF, Chronic anemia and PVD PSH:appendectomy, Angioplasty w b/l illiac stents (01/07/18) FHx: Unknown Medications: As per EMR, Unable to obtain information from patient All: NKDA Social Hx: Lives at a longterm. Former tobacco use Upon Admission Patient is a 77 year old female with past medical history of COPD, DM, CAD, CHF , Chronic anemia and PVD with non-healing bilateral lower extremity wounds and noted for malodorous smell and increased pain by nursing room staff. Patient has been admitted for similar complain in the past and noted for PVD. Patient had an angioplasty with bilateral iliac stent placement on 01/07 by clearance coordinator, Dr. Puente. Patient was brought back to the hospital ([facility]) for worsening bilateral LE gangrene. As per EMR documentation, patient did well after intervention in December and noted worsening of symptoms, which has made her bedbound for approximately a week. During the encounter, patient was very sleepy but did deny any discomfort at the moment. Patient was transferred from [facility] to [facility] for angiogram. Hospital Course Patient is a 77 y.o female who was transferred here for peripheral angiogram to identify possible revascularization of bilateral lower extremities; Vascular Surgery was consulted for their input; After vascular surgeon evaluation he suggested bilateral AKA or hospice care; patient's nephew was called to inform him of patient's situation; Nephew was amenable to hospice care and consented to making patient DNR/DNI; Patient will be transferred back to [facility] as per Dr. Puente and will be under the care of Dr. Grant. Discharge Plan: Patient is stable for transfer to [facility] as per Dr. Puente. Dr. Puente requests that patient be transferred back to [facility] to be under the care of Dr. Lind. Patient has baseline dementia and has been have increasing confusion in the past few days, answering questions inappropriately and refusing labs at times. Patient repeats statements such as "I want nothing done ". Patient should resume the medications she is currently taking in [facility]. After speaking with patient's nephew yesterday he was amenable to hospice route instead of bilateral AKAs. He gave consent to switch patient to DNR/DNI and he was explained the situation of his aunt including her comorbidities, AMS, and the severity of the infection of her legs. Patient's PMD is Dr. Grant and all further management can be under his care. Disclaimer: Entailed above is a shortened synopsis of patient's hospital stay during this current admission. For full report please refer to EMR. Discharge Exam - Head Exam Head Exam: ATRAUMATIC, NORMAL INSPECTION, NORMOCEPHALIC - Eye Exam Eye Exam: EOMI, Normal appearance. absent: Nystagmus, Scleral icterus - Respiratory Exam Respiratory Exam: NORMAL BREATHING PATTERN. absent: Rales, Rhonchi, Wheezes, Respiratory Distress - Cardiovascular Exam Cardiovascular Exam: REGULAR RHYTHM, +S1, +S2. absent: Tachycardia, JVD - GI/Abdominal Exam GI & Abdominal Exam: Normal Bowel Sounds, Soft. absent: Distended, Firm, Guarding, Tenderness - Extremities Exam Additional comments: bilateral gangrene extremities from toe to distal knee - Neurological Exam Neurological exam: Altered Additional comments: AMS, baseline dementia - Skin Skin Exam: Intact, Normal Color Discharge Plan - Follow Up Plan Condition: GOOD Disposition: Trans to Other Acute Care Hosp Additional Instructions: Patient is stable for transfer to [facility] as per Dr. Puente. Dr. Puente requests that patient be transferred back to [facility] to be under the care of Dr. Lind. Patient has baseline dementia and has been have increasing confusion in the past few days, answering questions inappropriately and refusing labs at times. Patient repeats statements such as "I want nothing done ". Patient should resume the medications she is currently taking in [facility]. After speaking with patient's nephew yesterday he was amenable to hospice route instead of bilateral AKAs. He gave consent to switch patient to DNR/DNI and he was explained the situation of his aunt including her comorbidities, AMS, and the severity of the infection of her legs. Patient's PMD is Dr. Grant and all further management can be under his care. Referrals: Zbigniew Puente MD [Staff Provider] - <Cesar Blake - Last Filed: 02/27/18 15:00> Provider - Provider Date of Admission: 02/24/18 12:13 Attending physician: Cesar Blake, Hospital Course - Lab Results Lab Results: Most Recent Lab Values WBC 11.7 K/uL (4.8-10.8) H 02/26/18 07:48 RBC 3.46 Mil/uL (3.80-5.20) L 02/26/18 07:48 Hgb 8.1 g/dL (11.0-16.0) L 02/26/18 07:48 Hct 27.0 % (34.0-47.0) L 02/26/18 07:48 MCV 78.1 fL (81.0-99.0) L D 02/26/18 07:48 MCH 23.5 pg (27.0-31.0) L 02/26/18 07:48 MCHC 30.1 g/dL (33.0-37.0) L 02/26/18 07:48 RDW 22.7 % (11.5-14.5) H 02/26/18 07:48 Plt Count 214 K/uL (130-400) 02/26/18 07:48 MPV 8.3 fL (7.2-11.7) 02/26/18 07:48 Neut % (Auto) 89.2 % (50.0-75.0) H 02/26/18 07:48 Lymph % (Auto) 4.2 % (20.0-40.0) L 02/26/18 07:48 Towns % (Auto) 6.5 % (0.0-10.0) 02/26/18 07:48 Eos % (Auto) 0.0 % (0.0-4.0) 02/26/18 07:48 Baso % (Auto) 0.1 % (0.0-2.0) 02/26/18 07:48 Neut # (Auto) 10.5 K/uL (1.8-7.0) H 02/26/18 07:48 Lymph # (Auto) 0.5 K/uL (1.0-4.3) L 02/26/18 07:48 Towns # (Auto) 0.8 K/uL (0.0-0.8) 02/26/18 07:48 Eos # (Auto) 0.0 K/uL (0.0-0.7) 02/26/18 07:48 Baso # (Auto) 0.0 K/uL (0.0-0.2) 02/26/18 07:48 Neutrophils % (Manual) 91 % (50-75) H 02/26/18 07:48 Lymphocytes % (Manual) 3 % (20-40) L 02/26/18 07:48 Monocytes % (Manual) 5 % (0-10) 02/26/18 07:48 Myelocytes % 1 % (0-0) H 02/26/18 07:48 Platelet Estimate Normal (NORMAL) 02/26/18 07:48 Polychromasia Slight 02/26/18 07:48 Hypochromasia (manual) Moderate 02/26/18 07:48 Anisocytosis (manual) Moderate 02/26/18 07:48 Microcytosis (manual) Slight 02/26/18 07:48 Ovalocytes Slight 02/26/18 07:48 PT 13.6 SECONDS (9.7-12.2) H 02/24/18 17:48 INR 1.2 02/24/18 17:48 APTT 229 SECONDS (21-34) H* D 02/25/18 08:36 Sodium 140 mmol/L (132-148) 02/26/18 07:48 Potassium 4.3 mmol/L (3.6-5.2) 02/26/18 07:48 Chloride 111 mmol/L (98-107) H 02/26/18 07:48 Carbon Dioxide 14 mmol/L (22-30) L 02/26/18 07:48 Anion Gap 19 (10-20) 02/26/18 07:48 BUN 33 mg/dL (7-17) H 02/26/18 07:48 Creatinine 0.8 mg/dL (0.7-1.2) 02/26/18 07:48 Est GFR ( Amer) > 60 02/26/18 07:48 Est GFR (Non-Af Amer) > 60 02/26/18 07:48 POC Glucose (mg/dL) 119 mg/dL (65-110) H 02/27/18 06:33 Random Glucose 96 mg/dL (65-105) 02/26/18 07:48 Calcium 8.2 mg/dl (8.6-10.4) L 02/26/18 07:48 Phosphorus 3.2 mg/dL (2.5-4.5) 02/26/18 07:48 Magnesium 1.7 mg/dL (1.6-2.3) 02/26/18 07:48 Total Bilirubin 1.0 mg/dL (0.2-1.3) 02/26/18 07:48 AST 18 U/L (14-36) 02/26/18 07:48 ALT 27 U/L (9-52) 02/26/18 07:48 Alkaline Phosphatase 101 U/L (38-126) 02/26/18 07:48 Total Protein 5.4 g/dL (6.3-8.3) L 02/26/18 07:48 Albumin 2.5 g/dL (3.5-5.0) L 02/26/18 07:48 Globulin 2.9 gm/dL (2.2-3.9) 02/26/18 07:48 Albumin/Globulin Ratio 0.9 (1.0-2.1) L 02/26/18 07:48 Blood Type Cancelled 02/24/18 23:00 Antibody Screen Cancelled 02/24/18 23:00 Attending/Attestation - Attestation I have personally seen and examined this patient.: Yes I have fully participated in the care of the patient.: Yes I have reviewed all pertinent clinical information, including history, physical exam and plan: Yes Notes (Text): 02/27/18 14:58 Medical attending: Patient was seen and examined by me. Reviewed the above note by the resident The order for transfer is in. I spoke with the patient's PMD Dr David Valdovinos of [facility] and made him aware that the patient and family did not want to attempt any further interventions (bilateral AKA) and that the patient was now DNR and DNI. Per Cardiology Dr Puente the patient is going back to [place]. I also spoke with the admissions department at [place] to make them aware Cesar Blake
[2018-02-27 16:01] VITALS: BP 110/65; PULSE 69; TEMP 97.7; O2SAT 100
== END 2018-02-27 17:30 | disposition short-term general hospital (02) | DRG 300 ==
LOC: C.CATHLAB 07:22 → C.9I 12:13 → C.9S 12:54 → C.5S 18:06
PROVIDERS: ADMIT Hospitalist; ATTEND Hospitalist
PROC: B40DYZZ Plain Radiography of Aorta and Bilateral Lower Extremity Arteries using Other Contrast (ICD-10-PCS; principal; 2018-02-24 09:30)
DX: E11.52 Type 2 diabetes mellitus with diabetic peripheral angiopathy with gangrene (principal); L97.909 Non-pressure chronic ulcer of unspecified part of unspecified lower leg with unspecified severity; N17.9 Acute kidney failure, unspecified; E11.622 Type 2 diabetes mellitus with other skin ulcer; F03.90 Unspecified dementia, unspecified severity, without behavioral disturbance, psychotic disturbance, mood disturbance, and anxiety; I11.0 Hypertensive heart disease with heart failure; I25.10 Atherosclerotic heart disease of native coronary artery without angina pectoris; I50.9 Heart failure, unspecified; I87.2 Venous insufficiency (chronic) (peripheral); I99.8 Other disorder of circulatory system; J44.9 Chronic obstructive pulmonary disease, unspecified; K59.00 Constipation, unspecified; Z66 Do not resuscitate; Z87.891 Personal history of nicotine dependence; E78.00 Pure hypercholesterolemia, unspecified